=== PATIENT | male | born 1965 | race Caucasian/White ===

== ENCOUNTER 2016-11-16 08:00 | Outpatient (CLI) | payer BC, OTHER | END 2016-11-16 08:01 | disposition home or self-care (01) | DX: M86.9 Osteomyelitis, unspecified (principal); L89.309 Pressure ulcer of unspecified buttock, unspecified stage ==

== ENCOUNTER 2016-11-23 13:49 | Outpatient (CLI) | payer OTHER | END 2016-11-23 23:59 | DX: M86.9 Osteomyelitis, unspecified (principal) ==

== ENCOUNTER 2016-11-30 12:30 | Outpatient (CLI) | payer OTHER | END 2016-11-30 12:31 | disposition home or self-care (01) | DX: S31.809D Unspecified open wound of unspecified buttock, subsequent encounter (principal) ==

== ENCOUNTER 2016-11-30 13:50 | Outpatient (CLI) | payer OTHER | END 2016-11-30 13:51 | disposition home or self-care (01) | DX: M86.9 Osteomyelitis, unspecified (principal) ==

== ENCOUNTER 2016-12-07 | Outpatient (CLI) | payer OTHER | END 2016-12-07 08:44 | disposition home or self-care (01) | CPT/HCPCS: A0170; A0425; A0428 ==

== ENCOUNTER 2016-12-07 | Outpatient (CLI) | payer OTHER | END 2016-12-07 05:09 | disposition short-term general hospital (02) | DX: L89.319 Pressure ulcer of right buttock, unspecified stage (principal) | CPT/HCPCS: A0170; A0425; A0428 ==

== ENCOUNTER 2017-08-02 12:41 | Day surgery (SDC) | payer MEDICAID ==
[2017-08-02] MEDS ORDERED: LACTATED RINGERS 1,000 ML IV ONE ×2 (13:25→15:39)
[2017-08-02] MEDS ORDERED: LIDOCAINE-MPF 2% 5 ML VIAL IM ONE (14:55)
[2017-08-02] MEDS ORDERED: MIDAZOLAM 2 MG/2 ML VIAL IVP ONE (14:55)
[2017-08-02] MEDS ORDERED: PROPOFOL 200 MG/20 ML VIAL IVP ONE (14:55)
[2017-08-02 16:51] VITALS: BP 117/64
== END 2017-08-02 12:42 | disposition home or self-care (01) ==
LOC: SDS 12:41
PROVIDERS: ATTEND Surgery
PROC: 0DBL8ZX Excision of Transverse Colon, Via Natural or Artificial Opening Endoscopic, Diagnostic (ICD-10-PCS; principal; 2017-08-02 13:45)
DX: D12.3 Benign neoplasm of transverse colon (principal); D12.2 Benign neoplasm of ascending colon; K57.30 Diverticulosis of large intestine without perforation or abscess without bleeding; N31.9 Neuromuscular dysfunction of bladder, unspecified; G89.4 Chronic pain syndrome; G90.1 Familial dysautonomia [Riley-Day]; G82.53 Quadriplegia, C5-C7 complete
CPT/HCPCS: 45385; J7120

== ENCOUNTER 2017-09-27 11:10 | Outpatient (CLI) | payer OTHER, MEDICAID ==
--- NOTE | 2017-09-28 15:29 | Ultrasound Report ---
RETROPERITONEAL ULTRASOUND: 09/27/2017 HISTORY: Neurogenic bladder. Evaluate for stones or hydronephrosis. Patient is a quadriplegic. COMPARISON: 09/30/2016 Real-time scanning by the brand representative with saved static images reviewed. RIGHT KIDNEY: 19.0 x 6.6 x 9.3 cm. There is an upper pole cyst 10.9 x 10.4 x 9.7 cm with a smaller adjacent cyst 3.7 x 4.2 x 9.7 cm. Conmposite cyst measurements are 13.5 x 10.7 x 5.8 cm. LEFT KIDNEY: 12.3 x 6.2 x 6.2 cm. No cystic or solid mass is seen. No stones. Pre-void bladder volume 21 mL. R[address] catheter in place. Ureteral jets are not seen. Overall, the examination is similar to 09/30/2016. IMPRESSION: 1. ROUSE CATHETER DECOMPRESSES A NEUROGENIC BLADDER. 2. NO EVIDENCE OF RENAL STONES OR SOLID MASSES. LARGE RIGHT RENAL CYST BEFORE. 3. NO SIGNIFICANT NEW FINDINGS. :9 JOB #: [id number] EXT JOB #: [id number] MTDD
== END 2017-09-27 11:11 | disposition home or self-care (01) ==
LOC: DI 11:10
PROVIDERS: ATTEND Physical Medicine & Rehabilitation Spinal Cord Injury Medicine
DX: N31.9 Neuromuscular dysfunction of bladder, unspecified (principal)
CPT/HCPCS: 76770

== ENCOUNTER 2018-09-21 08:21 | Outpatient (CLI) | payer OTHER, MEDICAID ==
[2018-09-21 08:52] LABS: ALBUMIN 3.6 g/dL (3.2-5.5); ALBUMIN/GLOBULIN RATIO 1.2 (1.0-2.2); ALKALINE PHOSPHATASE 53 IU/L (42-121); ALT ALANINE AMINOTRANSFERASE 21 IU/L (10-60); AST ASPARTATE AMINOTRANSFERASE 20 IU/L (10-42); BASOPHILS % (AUTO) 0.3 %; BILIRUBIN,TOTAL 0.6 mg/dL (0.2-1.0); BUN - BLOOD UREA NITROGEN 9 mg/dL (6-20); CALCIUM 8.7 mg/dL (8.5-10.3); CARBON DIOXIDE - CO2 25 mmol/L (21-32); CHLORIDE 105 mmol/L (101-111); CHOL/HDL RATIO 4.8 (<5.0); CHOLESTEROL 174 mg/dL; CREATININE 0.5 mg/dL (0.6-1.2); EOSINOPHILS # (AUTO) 0.1 10^3/uL (0.0-0.7); EOSINOPHILS % (AUTO) 1.5 %; GFR - MDRD 173 (>89); GLUCOSE 106 mg/dL (70-100); HDL CHOLESTEROL 36 mg/dL; HGB - HEMOGLOBIN 14.9 g/dL (14.0-18.0); LDL CHOLESTEROL,CALCULATED 117 mg/dL; LDL/HDL RATIO 3.3 (<3.6); LYMPHOCYTES % (AUTO) 27.4 %; MEAN CORPUSCULAR HEMOGLOBIN 30.2 pg (27.0-31.0); MEAN CORPUSCULAR HGB CONC 34.8 g/dL (32.0-36.0); MEAN CORPUSCULAR VOLUME 86.9 fL (80.0-94.0); MEAN PLATELET VOLUME 7.6 fL (7.4-11.4); MONOCYTES # (AUTO) 0.5 10^3/uL (0.0-1.0); MONOCYTES % (AUTO) 6.3 %; NEUTROPHILS # (AUTO) 4.7 10^3/uL (1.5-6.6); NEUTROPHILS % (AUTO) 64.5 %; PLT - PLATELET COUNT 192 10^3/uL (130-450); RED BLOOD COUNT 4.95 10^6/uL (4.70-6.10); RED CELL DISTRIBUTION WIDTH 13.9 % (12.0-15.0); SODIUM 135 mmol/L (135-145); TOTAL PROTEIN 6.7 g/dL (6.7-8.2); VLDL CHOLESTEROL 21 mg/dL; WHITE BLOOD COUNT 7.3 x10^3/uL (4.8-10.8)
[2018-09-21 09:39] LABS: THYROID STIMULATING HORMONE 1.98 uIU/mL (0.34-5.60)
[2018-09-21 09:41] LABS: FREE T4 (FREE THYROXINE) 0.97 ng/dL (0.58-1.64)
== END 2018-09-21 08:22 | disposition home or self-care (01) ==
LOC: LAB 08:21
PROVIDERS: ATTEND Family Medicine
DX: Z00.00 Encounter for general adult medical examination without abnormal findings (principal); Z12.5 Encounter for screening for malignant neoplasm of prostate
CPT/HCPCS: 36415; 80053; 80061; 83721; 84153; 84439; 84443; 85025

== ENCOUNTER 2018-11-22 17:44 | Outpatient (CLI) | payer MEDICAID | END 2018-11-22 17:45 | disposition EMS.NT | LOC: EMS 17:44 | PROVIDERS: ATTEND Surgery | DX: I10 Essential (primary) hypertension (principal); R51 Headache; G82.20 Paraplegia, unspecified ==

== ENCOUNTER 2018-11-26 10:31 | Emergency (ER) | payer OTHER, MEDICAID ==
[2018-11-26 11:08] LABS: BILIRUBIN,URINE NEGATIVE (NEGATIVE); CLARITY,URINE HAZY (CLEAR); GLUCOSE, URINE (UA) NEGATIVE (NEGATIVE); KETONES,URINE (UA) NEGATIVE (NEGATIVE); LEUKOCYTE ESTERASE, URINE SMALL (NEGATIVE); NITRITE,URINE POSITIVE (NEGATIVE); OCCULT BLOOD,URINE SMALL (NEGATIVE); PROTEIN,URINE NEGATIVE (NEGATIVE); UROBILINOGEN,URINE 0.2 (NORMAL) E.U./dL (NORMAL)
[2018-11-26 11:16] LABS: AMORPHOUS SEDIMENT,UR Few /LPF; BACTERIA,URINE Many /HPF (None Seen); RBC,URINE 0-5 /HPF (0-5); SQUAMOUS EPITHELIAL CELL,UR RARE Squamous (<= Few)
[2018-11-26 11:17] LABS: CRYSTALS,URINE 0-2 Calcium Oxalate /LPF
[2018-11-26] MEDS ORDERED: PHENAZOPYRIDINE 100 MG TABLET PO STA (11:39)
[2018-11-26] MEDS ORDERED: SULFAMETH/TRIMETH DS 800/160 MG TABLET PO STA (11:39)
--- NOTE | 2018-11-26 11:39 | ED Physician Documentation ---
PD HPI MALE - Stated complaint Stated Complaint: MALE - Chief complaint Chief Complaint: UTI - History obtained from History obtained from: Patient - History of Present Illness Timing - onset: Yesterday (he had some episodes of autonomic dysfunction that he self treated at home. No URI symptoms. He is concerned about UTI because of that. Has jacques and is not able to feel discomfort of the bladder due to spinal injury.) Timing - duration: Days (1-2) Timing - details: Waxing and waning (had some episodes of autonomic symptoms yesterday) Associated symptoms: Back pain, Indwelling catheter, Other (feeling low grade fevers). No: Abdominal pain Similar symptoms before: Diagnosis (has not had UTI for about 4 years.) Recently seen: Not recently seen Review of Systems Constitutional: reports: Fever (subjective mild ever for 1-2 days) Nose: denies: Rhinorrhea / runny nose, Congestion Throat: denies: Sore throat Respiratory: denies: Cough GI: denies: Nausea, Vomiting, Diarrhea : denies: Discharge PD PAST MEDICAL HISTORY - Past Medical History Past Medical History: Yes Cardiovascular: None Respiratory: None Endocrine/Autoimmune: None GI: None : Indwelling catheter Psych: None Musculoskeletal: Other Derm: None - Past Surgical History Past Surgical History: Yes General: Appendectomy Neuro: Other Derm: Debridement - Present Medications Home Medications: Ambulatory Orders Medication Instructions Recorded Confirmed Acetaminophen/Diphenhydramine 650 mg PO Q4HR PRN 07/13/13 11/26/18 [Tylenol Pm Ex-Strength Caplet] Bisacodyl [Laxative] 10 mg PO DAILY 07/13/13 11/26/18 Cranberry 2,000 mg PO BID 07/13/13 11/26/18 Docusate Sodium [Docu Soft] 250 mg PO DAILY 07/13/13 11/26/18 Furosemide [Lasix] 20 mg PO BID 07/13/13 11/26/18 Multivitamin [Multivitamins] 1 each PO DAILY 07/13/13 11/26/18 Ascorbic Acid [Vitamin C] 1 tab PO DAILY 11/20/14 11/26/18 Cholecalciferol [Vitamin D3] 1 tab PO DAILY 11/20/14 11/26/18 Lactobacillus Acidophilus 1 cap PO DAILY 11/20/14 11/26/18 [Probiotic] Nitroglycerin 2% Oint [Nitro-Bid 1 inch TOP Q8HR PRN 11/20/14 11/26/18 2% Oint] Phenazopyridine HCl [Pyridium] 200 mg PO TID PRN #6 tablet 11/26/18 Senna [Senokot] 8.6 mg PO DAILY 11/26/18 11/26/18 Sulfamethox/Trimeth 800/160 1 each PO BID #20 tablet 11/26/18 [Bactrim Ds 800/160] - Allergies Allergies/Adverse Reactions: Allergies Allergy/AdvReac Type Severity Reaction Status Date / Time No Known Drug Allergies Allergy Verified 11/26/18 10:39 - Social History Does the pt smoke?: No Smoking Status: Never smoker Does the pt drink ETOH?: No Does the pt have substance abuse?: No - Immunizations Immunizations are current?: Yes PD ED PE NORMAL - Vitals Vital signs reviewed: Yes - General General: Alert and oriented X 3, No acute distress, Well developed/nourished - HEENT HEENT: Pharynx benign - Neck Neck: Supple, no meningeal sign, No adenopathy - Cardiac Cardiac: RRR, No murmur - Respiratory Respiratory: Clear bilaterally - Abdomen Abdomen: Soft, Non distended - Male Male : Deferred - Derm Derm: Normal color, Warm and dry - Neuro Neuro: Other (in wheelchair with paresis from waist down.) Results - Vitals Vitals: Vital Signs - 24 hr 11/26/18 11/26/18 11/26/18 10:37 10:51 12:15 Temperature 35.7 C L 97.7 C H 36.5 C Heart Rate 67 63 57 L Respiratory 20 12 Rate Blood Pressure 136/80 H 126/78 O2 Saturation 98 96 95 Oxygen O2 Source Room air - Labs Labs: Laboratory Tests 11/26/18 10:47 Urine Color LIGHT YELLOW Urine Clarity HAZY Urine pH 7.0 Ur Specific [place] <=1.005 Urine Protein NEGATIVE Urine Glucose (UA) NEGATIVE Urine Ketones NEGATIVE Urine Occult Blood SMALL H Urine Nitrite POSITIVE H Urine Bilirubin NEGATIVE Urine Urobilinogen 0.2 (NORMAL) Ur Leukocyte Esterase SMALL H Urine RBC 0-5 Urine WBC 11-25 H Ur Squamous Epith Cells RARE Squamous Urine Crystals 0-2 Calcium Oxalate Amorphous Sediment Few Urine Bacteria Many H Ur Microscopic Review INDICATED Urine Culture Comments INDICATED PD MEDICAL DECISION MAKING - ED course Complexity details: reviewed results, considered differential, d/w patient Departure - Departure Disposition: 01 Home, Self Care Clinical Impression: UTI (urinary tract infection) Qualifiers: Urinary tract infection type: acute cystitis Hematuria presence: without hematuria Qualified Code(s): N30.00 - Acute cystitis without hematuria Condition: Stable Record reviewed to determine appropriate education?: Yes Instructions: ED UTI Cystitis Male Follow-Up: Jose Baez MD [Primary Care Provider] - Prescriptions: Phenazopyridine HCl [Pyridium] 200 mg PO TID PRN #6 tablet PRN Reason: dysuria Sulfamethox/Trimeth 800/160 [Bactrim Ds 800/160] 1 each PO BID #20 tablet Comments: Drink lots of fluids. Bactrim antibiotic twice daily for the infection. You could use some phenazopyridine to reduce the bladder irritation and hopefully therefore less spasming. Discharge Date/Time: 11/26/18 12:20
[2018-11-26 12:16] VITALS: BP 126/78
== END 2018-11-26 12:20 | disposition home or self-care (01) ==
LOC: ED 10:31
DX: N30.00 Acute cystitis without hematuria (principal); G83.9 Paralytic syndrome, unspecified; Z99.3 Dependence on wheelchair
CPT/HCPCS: 81001; 87077; 87086; 87181; 99283; A9270; 81003

== ENCOUNTER 2018-11-28 15:53 | Emergency (ER) | payer OTHER, MEDICAID ==
--- NOTE | 2018-11-28 16:07 | ED Physician Documentation ---
PD HPI CHEST PAIN - Stated complaint Stated Complaint: CHEST PAIN - History obtained from History obtained from: Patient - History of Present Illness Timing - onset: How many days ago (3) Timing - onset during: Other (he had UTI symptoms with an episode of autonomic dysreflexia, with dyspnea, hypertension and some vomiting. Did not have chest pain right hten but noted it a few hours later and has had the chest tightness undulate the past few days. Not exertional (he does arm cycling machine) nor any palpitations. Has had lot of belching and feels bloated in abd.) Timing - duration: Days Timing - details: Gradual onset, Still present, Waxing and waning Quality: Pressure, Tightness. No: Tearing, Dull, Stabbing Location: Substernal Radiation: Abdominal. No: Back Improved by: No: Rest Worsened by: No: Exertion, Inspiration Associated symptoms: General Weakness. No: Nausea, Palpitations, Cough Similar symptoms before: Has not had sx before (no history of CAD. Is concerned that the hypertension and AD episode he had the other day caused some heart injury.) Recently seen: Not recently seen Review of Systems Constitutional: denies: Fever, Chills Nose: denies: Rhinorrhea / runny nose, Congestion Throat: denies: Sore throat Cardiac: reports: Chest pain / pressure, Pedal edema (chronic daily, better with legs elevated during the night.). denies: Palpitations, Calf pain Respiratory: denies: Cough PD PAST MEDICAL HISTORY - Past Medical History Cardiovascular: None, Murmur Respiratory: None Endocrine/Autoimmune: None GI: None : Indwelling catheter Psych: None Musculoskeletal: Other Derm: None - Past Surgical History Past Surgical History: Yes General: Appendectomy Neuro: Other Derm: Debridement - Present Medications Home Medications: Ambulatory Orders Medication Instructions Recorded Confirmed Acetaminophen/Diphenhydramine 650 mg PO Q4HR PRN 07/13/13 11/26/18 [Tylenol Pm Ex-Strength Caplet] Bisacodyl [Laxative] 10 mg PO DAILY 07/13/13 11/26/18 Cranberry 2,000 mg PO BID 07/13/13 11/26/18 Docusate Sodium [Docu Soft] 250 mg PO DAILY 07/13/13 11/26/18 Furosemide [Lasix] 20 mg PO BID 07/13/13 11/26/18 Multivitamin [Multivitamins] 1 each PO DAILY 07/13/13 11/26/18 Ascorbic Acid [Vitamin C] 1 tab PO DAILY 11/20/14 11/26/18 Cholecalciferol [Vitamin D3] 1 tab PO DAILY 11/20/14 11/26/18 Lactobacillus Acidophilus 1 cap PO DAILY 11/20/14 11/26/18 [Probiotic] Nitroglycerin 2% Oint [Nitro-Bid 1 inch TOP Q8HR PRN 11/20/14 11/26/18 2% Oint] Phenazopyridine HCl [Pyridium] 200 mg PO TID PRN #6 tablet 11/26/18 Senna [Senokot] 8.6 mg PO DAILY 11/26/18 11/26/18 Sulfamethox/Trimeth 800/160 1 each PO BID #20 tablet 11/26/18 [Bactrim Ds 800/160] Famotidine 20 mg PO DAILY #20 tablet 11/28/18 - Allergies Allergies/Adverse Reactions: Allergies Allergy/AdvReac Type Severity Reaction Status Date / Time No Known Drug Allergies Allergy Verified 11/28/18 16:23 - Social History Does the pt smoke?: No Smoking Status: Never smoker Does the pt drink ETOH?: No Does the pt have substance abuse?: No - Immunizations Immunizations are current?: Yes PD ED PE NORMAL - Vitals Vital signs reviewed: Yes - General General: Alert and oriented X 3, No acute distress, Well developed/nourished - HEENT HEENT: Ears normal, Pharynx benign - Neck Neck: Supple, no meningeal sign, No adenopathy - Cardiac Cardiac: RRR, Other (1/6 murmur left chest without radiation to neck. ) - Respiratory Respiratory: Clear bilaterally - Abdomen Abdomen: Normal bowel sounds, Soft, Non tender, Non distended, No organomegaly - Derm Derm: Normal color, No rash - Extremities Extremities: Other (1+ edema in both lower legs, with muscle atrophy chronic also noted. ) - Neuro Eye Opening: Spontaneous Motor: Obeys Commands Verbal: Oriented GCS Score: 15 Results - Vitals Vitals: Vital Signs - 24 hr 11/28/18 11/28/18 11/28/18 16:18 16:30 16:48 Temperature 36.4 C L Heart Rate 83 75 65 Respiratory 18 15 16 Rate Blood Pressure 117/69 101/58 L 132/78 H O2 Saturation 95 98 95 11/28/18 11/28/18 17:30 18:05 Temperature 36.4 C L Heart Rate 65 63 Respiratory 16 16 Rate Blood Pressure 128/72 126/74 O2 Saturation 97 96 Oxygen O2 Source Room air - EKG (time done) 16:04 Rate: Rate (enter#) (69) Rhythm: NSR [place]: Normal Intervals: Normal ID QRS: Normal Ischemia: Normal ST segments, Non specific changes (lateral leads, T flattening. No ST changes. ). No: ST elevation c/w ischemia, ST depression - Labs Labs: Laboratory Tests 11/28/18 11/28/18 11/28/18 16:15 16:15 16:15 WBC 7.4 RBC 4.94 Hgb 14.8 Hct 44.0 MCV 89.0 MCH 29.9 MCHC 33.6 RDW 14.2 Plt Count 173 MPV 7.8 Neut # (Auto) 4.8 Lymph # (Auto) 1.8 [place] # (Auto) 0.6 Eos # (Auto) 0.2 Baso # (Auto) 0.0 Absolute Nucleated RBC 0.00 Nucleated RBC % 0.0 Sodium 136 Potassium 4.2 Chloride 103 Carbon Dioxide 25 Anion Gap 8.0 BUN 15 Creatinine 0.6 Estimated GFR (MDRD) 140 Glucose 121 H Calcium 9.2 Magnesium 2.3 Total Bilirubin 0.6 AST 22 ALT 22 Alkaline Phosphatase 47 Troponin I < 0.04 B-Natriuretic Peptide Total Protein 6.8 Albumin 3.8 Globulin 3.0 Albumin/Globulin Ratio 1.3 Lipase 29 11/28/18 16:15 WBC RBC Hgb Hct MCV MCH MCHC RDW Plt Count MPV Neut # (Auto) Lymph # (Auto) [place] # (Auto) Eos # (Auto) Baso # (Auto) Absolute Nucleated RBC Nucleated RBC % Sodium Potassium Chloride Carbon Dioxide Anion Gap BUN Creatinine Estimated GFR (MDRD) Glucose Calcium Magnesium Total Bilirubin AST ALT Alkaline Phosphatase Troponin I B-Natriuretic Peptide 22 Total Protein Albumin Globulin Albumin/Globulin Ratio Lipase - Rads (name of study) chest xray Radiology: Prelim report reviewed, EMP read contemporaneously (normal), See rad report PD MEDICAL DECISION MAKING - ED course Complexity details: reviewed results (no signs of DE, CHF, pneumonia, effusion. Consider heartburn as he has been belching often and did feel some improvement with the Mylanta. ), re-evaluated patient, considered differential, d/w patient Departure - Departure Disposition: 01 Home, Self Care Clinical Impression: Chest pain Qualifiers: Chest pain type: precordial pain Qualified Code(s): R07.2 - Precordial pain Condition: Stable Record reviewed to determine appropriate education?: Yes Instructions: ED Chest Pain Atypical Unkn Cause Follow-Up: Jsoe Baez MD [Primary Care Provider] - Prescriptions: Famotidine 20 mg PO DAILY #20 tablet Comments: No signs of heart attack heart failure pancreas or liver abnormalities. The lungs appear clear on x-ray as well. I am presuming the discomfort may be reflux or gas. You could try some famotidine acid reducing medicine daily for the next couple of weeks and also continue antacid such as Tums or Mylanta or an equivalent periodically. Follow-up with your primary care if you continue to have chest discomfort in particular in the exertion related. Discharge Date/Time: 11/28/18 18:00
[2018-11-28] MEDS ORDERED: MAG HYDROX/AL HYDROX/SIMETH 30 ML UDC PO STA (16:34)
[2018-11-28 16:43] LABS: BASOPHILS % (AUTO) 0.5 %; EOSINOPHILS # (AUTO) 0.2 10^3/uL (0.0-0.7); EOSINOPHILS % (AUTO) 2.3 %; HGB - HEMOGLOBIN 14.8 g/dL (14.0-18.0); LYMPHOCYTES # (AUTO) 1.8 10^3/uL (1.5-3.5); LYMPHOCYTES % (AUTO) 24.8 %; MEAN CORPUSCULAR HEMOGLOBIN 29.9 pg (27.0-31.0); MEAN CORPUSCULAR HGB CONC 33.6 g/dL (32.0-36.0); MEAN PLATELET VOLUME 7.8 fL (7.4-11.4); MONOCYTES # (AUTO) 0.6 10^3/uL (0.0-1.0); MONOCYTES % (AUTO) 7.5 %; NEUTROPHILS # (AUTO) 4.8 10^3/uL (1.5-6.6); NEUTROPHILS % (AUTO) 64.9 %; PLT - PLATELET COUNT 173 10^3/uL (130-450); RED BLOOD COUNT 4.94 10^6/uL (4.70-6.10); RED CELL DISTRIBUTION WIDTH 14.2 % (12.0-15.0); WHITE BLOOD COUNT 7.4 x10^3/uL (4.8-10.8)
[2018-11-28 16:53] LABS: ALBUMIN 3.8 g/dL (3.2-5.5); ALBUMIN/GLOBULIN RATIO 1.3 (1.0-2.2); BILIRUBIN,TOTAL 0.6 mg/dL (0.2-1.0); CALCIUM 9.2 mg/dL (8.5-10.3); CREATININE 0.6 mg/dL (0.6-1.2); MAGNESIUM 2.3 mg/dL (1.7-2.8); TOTAL PROTEIN 6.8 g/dL (6.7-8.2)
--- NOTE | 2018-11-28 17:14 | XRAY Report ---
Reason: chest pressure Procedure Date: 11/28/2018 Accession Number: [id number] / [id number] Procedure: XR - Chest 1 View X-Ray CPT Code: 08070 FULL RESULT: EXAM: CHEST RADIOGRAPHY EXAM DATE: 11/28/2018 05:03 PM. CLINICAL HISTORY: Chest pressure. COMPARISON: None. TECHNIQUE: 1 view. FINDINGS: Lungs/Pleura: No focal opacities evident. No pleural effusion. No pneumothorax. Mediastinum: Within exam limitations, the cardiomediastinal contour is normal. Other: Cervicothoracic fusion hardware is in place. IMPRESSION: No acute intrathoracic plain film abnormality. RADIA
[2018-11-28 18:05] VITALS: BP 126/74
== END 2018-11-28 18:00 | disposition home or self-care (01) ==
LOC: ED 15:53
DX: R07.2 Precordial pain (principal); R14.2 Eructation; R01.1 Cardiac murmur, unspecified; I10 Essential (primary) hypertension
CPT/HCPCS: 36415; 71045; 80053; 83690; 83735; 83880; 84484; 85025; 93005; 99283; 99284; A9270

== ENCOUNTER 2019-01-15 16:00 | Observation (INO) | payer MEDICAID ==
[2019-01-15] MEDS ORDERED: SODIUM CHLORIDE FLUSH 0.9% 10 ML SYRINGE IVP PRN (17:28)
[2019-01-15] MEDS ORDERED: SODIUM CHLORIDE 0.9% 1,000 ML IV SCH (18:00)
[2019-01-15] MEDS: SODIUM/POTASSIUM/MAG SULFATES 354 ML PREP KIT PO SCH (19:10)
[2019-01-16] MEDS ORDERED: SODIUM CHLORIDE FLUSH 0.9% 10 ML SYRINGE IVP SCH (01:00)
[2019-01-16] MEDS: SODIUM/POTASSIUM/MAG SULFATES 354 ML PREP KIT PO SCH (04:21)
--- NOTE | 2019-01-16 07:56 | ANESTHESIA ---
Pre-Anesthesia VS, & Labs - Diagnosis Follow up on tubular adenoma - Procedure colonoscopy Vital Signs: Temp Pulse Resp BP Pulse Ox 36.3 C L 68 18 100/53 L 96 01/16/19 07:44 01/16/19 07:44 01/16/19 07:44 01/16/19 07:44 01/16/19 07:44 Height 6 ft Weight (kg) 120.202 kg Body Mass Index 35.9 - NPO >8 hours Home Medications and Allergies Active Medications Sodium Chloride (Normal Saline 0.9%) 1,000 mls @ 60 mls/hr IV .[id number] [facility] Last Infusion: 01/15/19 22:58 Dose: 60 mls/hr Sodium Chloride (Normal Saline Flush 0.9%) 10 ml IVP 0100,0900,1700 [facility] Last Admin: 01/15/19 23:34 Dose: Not Given Sodium Chloride (Normal Saline Flush 0.9%) 10 ml IVP PRN PRN PRN Reason: NEEDED PER PROVIDER ORDERS Acetaminophen/Diphenhydramine [Tylenol Pm Ex-Strength Caplet] 650 mg PO Q4HR PRN 07/13/13 Bisacodyl [Laxative] 10 mg PO DAILY 07/13/13 Cranberry 2,000 mg PO BID 07/13/13 Docusate Sodium [Docu Soft] 250 mg PO DAILY 07/13/13 Furosemide [Lasix] 20 mg PO BID 07/13/13 Multivitamin [Multivitamins] 1 each PO DAILY 07/13/13 Ascorbic Acid [Vitamin C] 1 tab PO DAILY 11/20/14 Cholecalciferol [Vitamin D3] 1 tab PO DAILY 11/20/14 Lactobacillus Acidophilus [Probiotic] 1 cap PO DAILY 11/20/14 Nitroglycerin 2% Oint [Nitro-Bid 2% Oint] 1 inch TOP Q8HR PRN 11/20/14 Senna [Senokot] 8.6 mg PO DAILY 11/26/18 Allergies/Adverse Reactions: Allergies Allergy/AdvReac Type Severity Reaction Status Date / Time No Known Drug Allergies Allergy Verified 11/28/18 16:23 Anes History & Medical History - Anesthetic History Anesthesia Complications: reports: No previous complications - Medical History Cardiovascular: reports: None, Murmur Pulmonary: reports: None Gastrointestinal: reports: None Urinary: reports: Indwelling catheter Neuro: reports: Other (Paralysis at chest level, has had issues with autonomic dysreflexia.) Musculoskeletal: reports: Other Endocrine/Autoimmune: reports: None Blood Disorders: reports: None Skin: reports: None Smoking Status: Never smoker Psychosocial: reports: No issues indicated - Surgical History General: Appendectomy Neurologic: Other Orthopedic: Spine surgery Dermatologic: Debridement Exam General: Alert, Oriented x3, Cooperative, No acute distress Dental: WNL Mouth Openin Fingerbreadth Mallampati classification: III Thyromental Distance: 4-6 cm Respiratory: Lungs clear, Normal breath sounds, No respiratory distress Cardiovascular: Regular rate, Normal S1, Normal S2, No murmurs Mental/Cognitive Status: Alert/Oriented X3, Normal for patient Plan Anesthesia Type: MAC Consent for Procedure(s) Verified and Reviewed: Yes Code Status: Attempt Resuscitation ASA classification: 3-Severe systemic disease Is this case an emergency?: No
[2019-01-16] MEDS ORDERED: SODIUM CHLORIDE 0.9% 1,000 ML IV ONE (08:03)
[2019-01-16] MEDS ORDERED: NITROGLYCERIN IV ONE (08:08)
[2019-01-16] MEDS ORDERED: MIDAZOLAM 2 MG/2 ML VIAL IVP ONE (08:28)
[2019-01-16] MEDS ORDERED: PROPOFOL 200 MG/20 ML VIAL IVP ONE (08:28)
[2019-01-16] MEDS ORDERED: fentaNYL 100 MCG/2 ML VIAL IVP ONE (08:28)
[2019-01-16 10:05] VITALS: BP 127/76
== END 2019-01-16 10:25 | disposition home or self-care (01) ==
LOC: MS2 16:00 → PREINTOOBSV 01-16 09:20
PROVIDERS: ADMIT Surgery; ATTEND Surgery
PROC: 0DBK8ZZ Excision of Ascending Colon, Via Natural or Artificial Opening Endoscopic (ICD-10-PCS; principal; 2019-01-15)
DX: Z12.11 Encounter for screening for malignant neoplasm of colon (principal); D12.2 Benign neoplasm of ascending colon; K63.89 Other specified diseases of intestine; K64.8 Other hemorrhoids; G82.53 Quadriplegia, C5-C7 complete; Z99.3 Dependence on wheelchair; E66.3 Overweight; Z74.1 Need for assistance with personal care; Z86.79 Personal history of other diseases of the circulatory system; G47.30 Sleep apnea, unspecified
CPT/HCPCS: 45385; 88305; A9270; G0378

== ENCOUNTER 2019-04-12 16:57 | Outpatient (CLI) | payer MEDICAID | END 2019-04-12 16:58 | disposition EMS.NT | LOC: EMS 16:57 | PROVIDERS: ATTEND Surgery | DX: S99.911A Unspecified injury of right ankle, initial encounter (principal); X58.XXXA Exposure to other specified factors, initial encounter; Y93.H9 Activity, other involving exterior property and land maintenance, building and construction; Y92.007 Garden or yard of unspecified non-institutional (private) residence as the place of occurrence of the external cause ==

== ENCOUNTER 2019-04-12 17:19 | Emergency (ER) | payer OTHER, MEDICAID ==
--- NOTE | 2019-04-12 18:29 | ED Physician Documentation ---
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 They are unsure if it is broken or not. He has no sensation in his legs. Review of Systems Constitutional: denies: Fever, Chills Nose: denies: Rhinorrhea / runny nose, Congestion Respiratory: denies: Cough PD PAST MEDICAL HISTORY - Past Medical History Cardiovascular: None, Murmur Respiratory: None Neuro: Other Endocrine/Autoimmune: None GI: None : Indwelling catheter Psych: None Musculoskeletal: Other Derm: None - Past Surgical History Past Surgical History: Yes General: Appendectomy Ortho: Spine surgery Neuro: Other Derm: Debridement - Present Medications Home Medications: Ambulatory Orders Medication Instructions Recorded Confirmed Acetaminophen/Diphenhydramine 650 mg PO Q4HR PRN 07/13/13 11/26/18 [Tylenol Pm Ex-Strength Caplet] Bisacodyl [Laxative] 10 mg PO DAILY 07/13/13 11/26/18 Cranberry 2,000 mg PO BID 07/13/13 11/26/18 Docusate Sodium [Docu Soft] 250 mg PO DAILY 07/13/13 11/26/18 Furosemide [Lasix] 20 mg PO BID 07/13/13 11/26/18 Multivitamin [Multivitamins] 1 each PO DAILY 07/13/13 11/26/18 Ascorbic Acid [Vitamin C] 1 tab PO DAILY 11/20/14 11/26/18 Cholecalciferol [Vitamin D3] 1 tab PO DAILY 11/20/14 11/26/18 Lactobacillus Acidophilus 1 cap PO DAILY 11/20/14 11/26/18 [Probiotic] Nitroglycerin 2% Oint [Nitro-Bid 1 inch TOP Q8HR PRN 11/20/14 11/26/18 2% Oint] Phenazopyridine HCl [Pyridium] 200 mg PO TID PRN #6 tablet 11/26/18 Senna [Senokot] 8.6 mg PO DAILY 11/26/18 11/26/18 Sulfamethox/Trimeth 800/160 1 each PO BID #20 tablet 11/26/18 [Bactrim Ds 800/160] Famotidine 20 mg PO DAILY #20 tablet 11/28/18 - Allergies Allergies/Adverse Reactions: Allergies Allergy/AdvReac Type Severity Reaction Status Date / Time No Known Drug Allergies Allergy Verified 04/12/19 17:29 - Social History Does the pt smoke?: No Smoking Status: Never smoker Does the pt drink ETOH?: No Does the pt have substance abuse?: No - Immunizations Immunizations are current?: Yes PD ED PE NORMAL - Vitals Vital signs reviewed: Yes - General General: Alert and oriented X 3, No acute distress - HEENT HEENT: Moist mucous membranes - Derm Derm: Warm and dry - Extremities Extremities: Other (R LE - mild swelling R foot and ankle. no sensation. vascularly intact. ) - Neuro Neuro: Alert and oriented X 3 Results - Vitals Vitals: Vital Signs - 24 hr 04/12/19 04/12/19 17:25 19:01 Temperature 36.1 C L Heart Rate 82 78 Respiratory 16 14 Rate Blood Pressure 111/63 106/79 O2 Saturation 96 96 Oxygen O2 Source Room air - Rads (name of study) Right ankle x-ray Radiology: Prelim report reviewed, EMP read contemporaneously, See rad report (No acute fractures) Right foot x-ray Radiology: Prelim report reviewed, EMP read contemporaneously, See rad report (No acute fractures) PD MEDICAL DECISION MAKING - ED course Complexity details: reviewed results, re-evaluated patient, considered differential, d/w patient, d/w family ED course: 53-year-old male, paralyzed after C6 injury. Right foot and ankle injury. No acute findings on x-ray. We will continue supportive care and follow-up with his doctor. Patient counseled regarding signs and symptoms for which I believe and urgent re-evaluation would be necessary. Patient with good understanding of and agreement to plan and is comfortable going home at this time This document was made in part using voice recognition software. While efforts are made to proofread this document, sound alike and grammatical errors may occur. Departure - Departure Disposition: 01 Home, Self Care Clinical Impression: Right ankle sprain Qualifiers: Encounter type: initial encounter Involved ligament of ankle: unspecified ligament Qualified Code(s): S93.401A - Sprain of unspecified ligament of right ankle, initial encounter Condition: Good Health Concerns: foot/ankle crush Plan of Treatment: supportive Care Goals: no fractures Assessment: no fractures Instructions: ED Sprain Ankle W X Ray Follow-Up: Jose Baez MD [Primary Care Provider] - As Needed Comments: There are no visible fractures on x-rays today. Return if he worsens. Follow- up with his doctor as needed for further care. Discharge Date/Time: 04/12/19 19:01
--- NOTE | 2019-04-12 18:49 | XRAY Report ---
Reason: R foot/ankle caught under electric wheelchair Procedure Date: 04/12/2019 Accession Number: [id number] / [id number] Procedure: XR - Foot 3 View RT CPT Code: FULL RESULT: EXAM: RIGHT FOOT RADIOGRAPHY EXAM DATE: 04/12/2019 06:22 PM. CLINICAL HISTORY: R foot/ankle caught under electric wheelchair. COMPARISON: None. TECHNIQUE: 3 views. FINDINGS: Bones: There is diffuse demineralization of the bones of the right foot. No acute fracture is identified. Joints: Joint space and alignment appear satisfactory. Soft Tissues: There is soft tissue swelling of the forefoot. IMPRESSION: Diffuse demineralization without a visualized acute fracture. RADIA
--- NOTE | 2019-04-12 18:50 | XRAY Report ---
Reason: R foot/ankle caught under electric wheelchair Procedure Date: 04/12/2019 Accession Number: [id number] / [id number] Procedure: XR - Ankle 3 View RT CPT Code: FULL RESULT: EXAM: RIGHT ANKLE RADIOGRAPHY EXAM DATE: 04/12/2019 06:22 PM. CLINICAL HISTORY: R foot/ankle caught under electric wheelchair. COMPARISON: ANKLE 3 VIEW RT 04/19/2016 10:49 AM LEG LOWER RT 02/26/2016 5:09 PM. TECHNIQUE: 3 views. FINDINGS: Bones: There is an old oblique fracture with callus formation of the inferior tibia diaphysis. There is diffuse demineralization present. No acute fracture. Joints: There is no subluxation or dislocation. Soft Tissues: No radiopaque soft tissue foreign body. IMPRESSION: 1. Diffuse demineralization without acute fracture. Old fracture with callus formation of the inferior tibia diaphysis. RADIA
[2019-04-12 19:04] VITALS: BP 106/79
== END 2019-04-12 19:01 | disposition home or self-care (01) ==
LOC: ED 17:19
DX: S93.401A Sprain of unspecified ligament of right ankle, initial encounter (principal); W23.0XXA Caught, crushed, jammed, or pinched between moving objects, initial encounter; G82.20 Paraplegia, unspecified; S14.106S Unspecified injury at C6 level of cervical spinal cord, sequela; Z99.3 Dependence on wheelchair
CPT/HCPCS: 99282; 99283

== ENCOUNTER 2019-05-15 23:07 | Outpatient (CLI) | payer MEDICAID | END 2019-05-15 23:08 | disposition EMS.NT | LOC: EMS 23:07 | PROVIDERS: ATTEND Surgery | DX: R51 Headache (principal) ==

== ENCOUNTER 2019-06-14 09:23 | Outpatient (CLI) | payer OTHER, MEDICAID ==
--- NOTE | 2019-06-14 15:24 | Ultrasound Report ---
Reason: NEUROGENIC BLADDER Procedure Date: 06/14/2019 Accession Number: [id number] / [id number] Procedure: US - Retroperitoneal CPT Code: FULL RESULT: EXAM: RENAL ULTRASOUND EXAM DATE: 06/14/2019 10:46 AM. CLINICAL HISTORY: Neurogenic bladder. COMPARISON: RETROPERITONEAL 09/30/2016 11:04 AM. TECHNIQUE: Real-time scanning was performed with static images obtained. FINDINGS: Right Kidney: 13.9 x 7.9 x 10.5 cm. Normal echotexture with no stones, contour-deforming masses, or hydronephrosis. The upper pole exophytic large cyst measures 11.7 x 11.7 x 10.7 cm. A mid renal cyst measures 7.1 x 3.9 x 6.4 cm. No solid masses evident. Left Kidney: 12.8 x 6.2 x 6.1 cm. Normal echotexture with no stones, contour-deforming masses, or hydronephrosis. Bladder: Bilateral jets seen. The prevoid bladder volume was 44 cc. A Kaba catheter was in position. No bladder wall thickening, mass or debris evident. Other: None. IMPRESSION: 1. No hydronephrosis. 2. 2 large right mid to upper pole cysts measuring up to 11.7 and 7.1 cm respectively. 3. Kaba catheter within bladder lumen. RADIA
== END 2019-06-14 09:24 | disposition home or self-care (01) ==
LOC: DI 09:23
PROVIDERS: ATTEND Urology
DX: N31.9 Neuromuscular dysfunction of bladder, unspecified (principal); N28.1 Cyst of kidney, acquired
CPT/HCPCS: 76770

== ENCOUNTER 2019-06-27 08:00 | Outpatient (CLI) | payer MEDICAID ==
[2019-06-27 13:12] LABS: BILIRUBIN,URINE NEGATIVE (NEGATIVE); GLUCOSE, URINE (UA) NEGATIVE (NEGATIVE); KETONES,URINE (UA) NEGATIVE (NEGATIVE); LEUKOCYTE ESTERASE, URINE SMALL (NEGATIVE); NITRITE,URINE NEGATIVE (NEGATIVE); OCCULT BLOOD,URINE NEGATIVE (NEGATIVE); PROTEIN,URINE NEGATIVE (NEGATIVE); UROBILINOGEN,URINE 0.2 (NORMAL) E.U./dL (NORMAL)
[2019-06-27 13:45] LABS: BACTERIA,URINE Rare /HPF (None Seen); CLARITY,URINE CLEAR (CLEAR); RBC,URINE 0-5 /HPF (0-5); SQUAMOUS EPITHELIAL CELL,UR RARE Squamous (<= Few)
== END 2019-06-27 23:59 | disposition home or self-care (01) ==
LOC: LAB.R 08:00
PROVIDERS: ATTEND Urology
DX: N39.0 Urinary tract infection, site not specified (principal)
CPT/HCPCS: 81001; 87077; 87086; 87181

== ENCOUNTER 2019-07-10 12:44 | Emergency (ER) | payer OTHER, MEDICAID ==
--- NOTE | 2019-07-10 13:53 | ED Physician Documentation ---
PD HPI MALE - Stated complaint Stated Complaint: MALE - Chief complaint Chief Complaint: UTI - History obtained from History obtained from: Patient (53-year-old gentleman with history of spinal cord injury and indwelling catheter was recently diagnosed with UTI by his urologist and one was on 1 week of Cipro. Subsequent to that he change his catheter today but is running low-grade fevers in the 99's, and he denies any high fevers or vomiting. He does have mild rectal pain which she finds interesting since he is not supposed to have pain below his spinal cord injury.) Review of Systems Constitutional: denies: Chills, Myalgias, Fatigue GI: denies: Abdominal Pain, Nausea, Vomiting, Diarrhea PD PAST MEDICAL HISTORY - Past Medical History Cardiovascular: None, Murmur Respiratory: None Neuro: Other Endocrine/Autoimmune: None GI: None : Indwelling catheter Psych: None Musculoskeletal: Other Derm: None - Past Surgical History Past Surgical History: Yes General: Appendectomy Ortho: Spine surgery Neuro: Other Derm: Debridement - Present Medications Home Medications: Ambulatory Orders Medication Instructions Recorded Confirmed Acetaminophen/Diphenhydramine 650 mg PO Q4HR PRN 07/13/13 11/26/18 [Tylenol Pm Ex-Strength Caplet] Bisacodyl [Laxative] 10 mg PO DAILY 07/13/13 11/26/18 Cranberry 2,000 mg PO BID 07/13/13 11/26/18 Docusate Sodium [Docu Soft] 250 mg PO DAILY 07/13/13 11/26/18 Furosemide [Lasix] 20 mg PO BID 07/13/13 11/26/18 Multivitamin [Multivitamins] 1 each PO DAILY 07/13/13 11/26/18 Ascorbic Acid [Vitamin C] 1 tab PO DAILY 11/20/14 11/26/18 Cholecalciferol [Vitamin D3] 1 tab PO DAILY 11/20/14 11/26/18 Lactobacillus Acidophilus 1 cap PO DAILY 11/20/14 11/26/18 [Probiotic] Nitroglycerin 2% Oint [Nitro-Bid 1 inch TOP Q8HR PRN 11/20/14 11/26/18 2% Oint] Phenazopyridine HCl [Pyridium] 200 mg PO TID PRN #6 tablet 11/26/18 Senna [Senokot] 8.6 mg PO DAILY 11/26/18 11/26/18 Sulfamethox/Trimeth 800/160 1 each PO BID #20 tablet 11/26/18 [Bactrim Ds 800/160] Famotidine 20 mg PO DAILY #20 tablet 11/28/18 Ciprofloxacin HCl [Cipro] 500 mg PO BID 14 Days #28 tablet 07/10/19 - Allergies Allergies/Adverse Reactions: Allergies Allergy/AdvReac Type Severity Reaction Status Date / Time No Known Drug Allergies Allergy Verified 07/10/19 12:47 - Social History Does the pt smoke?: No Smoking Status: Never smoker Does the pt drink ETOH?: No Does the pt have substance abuse?: No - Immunizations Immunizations are current?: Yes PD ED PE NORMAL - Vitals Vital signs reviewed: Yes - General General: Alert and oriented X 3, No acute distress - Abdomen Abdomen: Soft, Non tender - Male Male : Other (Catheter in place, mildly dark urine in the bag, not overtly purulence.) - Neuro Neuro: Alert and oriented X 3, Normal speech Results - Vitals Vitals: Vital Signs - 24 hr 07/10/19 12:47 Temperature 36.3 C L Heart Rate 78 Respiratory 16 Rate Blood Pressure 87/59 L O2 Saturation 98 Oxygen O2 Source Room air PD MEDICAL DECISION MAKING - ED course ED course: 53-year-old gentleman presents with recurrent UTI. Probably no point doing a urinalysis given that he has an indwelling cath repeat the culture. Previous culture reviewed, Cipro should work, but wonder if he has some element of prostatitis given the rectal pain. Note made of his blood pressure, he says this is his usual blood pressure since his spinal cord injury. Departure - Departure Disposition: 01 Home, Self Care Clinical Impression: UTI (urinary tract infection) Qualifiers: Urinary tract infection type: catheter-associated UTI Indwelling urinary catheter type: indwelling urethral catheter Encounter type: initial encounter Qualified Code(s): T83.511A - Infection and inflammatory reaction due to indwelling urethral catheter, initial encounter; N39.0 - Urinary tract infect ion, site not specified Condition: Good Record reviewed to determine appropriate education?: Yes Instructions: Catheter Indwelling Urinary Dc Prescriptions: Ciprofloxacin HCl [Cipro] 500 mg PO BID 14 Days #28 tablet Comments: As discussed, given the rectal pain there may be some element of prostatitis which would explain the previous treatment failure. Return for new worsening symptoms. Follow-up with your urologist and your primary care physician for further evaluation and treatment. We will culture the urine, if an antibiotic change is necessary based on that we will call you in 2 to 3 days time
[2019-07-10 14:08] VITALS: BP 85/50
== END 2019-07-10 14:09 | disposition home or self-care (01) ==
LOC: ED 12:44
DX: T83.511A Infection and inflammatory reaction due to indwelling urethral catheter, initial encounter (principal); N39.0 Urinary tract infection, site not specified
CPT/HCPCS: 87086; 87181; 99283

== ENCOUNTER 2019-11-22 08:52 | Emergency (ER) | payer MEDICAID, OTHER ==
[2019-11-22 09:06] VITALS: BP 124/76
[2019-11-22 09:22] LABS: BILIRUBIN,URINE NEGATIVE (NEGATIVE); GLUCOSE, URINE (UA) NEGATIVE (NEGATIVE); KETONES,URINE (UA) NEGATIVE (NEGATIVE); LEUKOCYTE ESTERASE, URINE LARGE (NEGATIVE); NITRITE,URINE POSITIVE (NEGATIVE); OCCULT BLOOD,URINE MODERATE (NEGATIVE); PROTEIN,URINE NEGATIVE (NEGATIVE); UROBILINOGEN,URINE 0.2 (NORMAL) E.U./dL (NORMAL)
[2019-11-22 09:23] LABS: CLARITY,URINE HAZY (CLEAR)
[2019-11-22 09:37] LABS: SQUAMOUS EPITHELIAL CELL,UR NONE SEEN (<= Few); WBC CLUMPS,URINE PRESENT
[2019-11-22 09:38] LABS: BACTERIA,URINE Few /HPF (None Seen)
--- NOTE | 2019-11-22 09:41 | ED Physician Documentation ---
PD HPI MALE - Stated complaint Stated Complaint: MALE - Chief complaint Chief Complaint: UTI - History obtained from History obtained from: Patient - History of Present Illness Timing - onset: Today Timing - details: Abrupt onset Associated symptoms: Other (darker urine with odor. Is c/w prior UTIs. Feeling okay otherwise. Indwelling jacques catheter with prior UTIs.) PD HPI MALE CONTRIB FACTORS: Indwelling catheter Similar symptoms before: Diagnosis (uti) Review of Systems Constitutional: denies: Fever GI: denies: Nausea, Vomiting Neurologic: denies: Altered mental status, Headache PD PAST MEDICAL HISTORY - Past Medical History Cardiovascular: None, Murmur Respiratory: None Neuro: Other Endocrine/Autoimmune: None GI: None : Indwelling catheter Psych: None Musculoskeletal: Other Derm: None - Past Surgical History Past Surgical History: Yes General: Appendectomy Ortho: Spine surgery Neuro: Other Derm: Debridement - Present Medications Home Medications: Ambulatory Orders Medication Instructions Recorded Confirmed Acetaminophen/Diphenhydramine 650 mg PO Q4HR PRN 07/13/13 11/26/18 [Tylenol Pm Ex-Strength Caplet] Bisacodyl [Laxative] 10 mg PO DAILY 07/13/13 11/26/18 Cranberry 2,000 mg PO BID 07/13/13 11/26/18 Docusate Sodium [Docu Soft] 250 mg PO DAILY 07/13/13 11/26/18 Furosemide [Lasix] 20 mg PO BID 07/13/13 11/26/18 Multivitamin [Multivitamins] 1 each PO DAILY 07/13/13 11/26/18 Ascorbic Acid [Vitamin C] 1 tab PO DAILY 11/20/14 11/26/18 Cholecalciferol [Vitamin D3] 1 tab PO DAILY 11/20/14 11/26/18 Lactobacillus Acidophilus 1 cap PO DAILY 11/20/14 11/26/18 [Probiotic] Nitroglycerin 2% Oint [Nitro-Bid 1 inch TOP Q8HR PRN 11/20/14 11/26/18 2% Oint] Phenazopyridine HCl [Pyridium] 200 mg PO TID PRN #6 tablet 11/26/18 Senna [Senokot] 8.6 mg PO DAILY 11/26/18 11/26/18 Sulfamethox/Trimeth 800/160 1 each PO BID #20 tablet 11/26/18 [Bactrim Ds 800/160] Famotidine 20 mg PO DAILY #20 tablet 11/28/18 Ciprofloxacin HCl [Cipro] 500 mg PO BID 14 Days #28 tablet 07/10/19 Doxycycline Monohydrate 100 mg PO BID #20 tablet 11/22/19 - Allergies Allergies/Adverse Reactions: Allergies Allergy/AdvReac Type Severity Reaction Status Date / Time No Known Drug Allergies Allergy Verified 07/10/19 12:47 - Social History Does the pt smoke?: No Smoking Status: Never smoker Does the pt drink ETOH?: No Does the pt have substance abuse?: No - Immunizations Immunizations are current?: Yes PD ED PE NORMAL - Vitals Vital signs reviewed: Yes - General General: Alert and oriented X 3, No acute distress, Well developed/nourished, Other (wheelchair bound. ) - Abdomen Abdomen: Soft, Non tender - Back Back: No CVA TTP - Derm Derm: Normal color, Warm and dry Results - Vitals Vitals: Vital Signs - 24 hr 11/22/19 09:02 Temperature 36 C L Heart Rate 83 Respiratory 16 Rate Blood Pressure 124/76 O2 Saturation 95 Oxygen O2 Source Room air - Labs Labs: Laboratory Tests 11/22/19 09:08 Urine Color YELLOW Urine Clarity HAZY Urine pH 7.0 Ur Specific [place] 1.010 Urine Protein NEGATIVE Urine Glucose (UA) NEGATIVE Urine Ketones NEGATIVE Urine Occult Blood MODERATE H Urine Nitrite POSITIVE H Urine Bilirubin NEGATIVE Urine Urobilinogen 0.2 (NORMAL) Ur Leukocyte Esterase LARGE H Urine RBC 11-25 H Urine WBC 11-25 H Urine WBC Clumps PRESENT Ur Squamous Epith Cells NONE SEEN Urine Bacteria Few Ur Microscopic Review INDICATED Urine Culture Comments INDICATED PD MEDICAL DECISION MAKING - ED course Complexity details: reviewed old records (looked at prior urine cultures and common was Citrobacter and staph, with sensitivities to Tetracycline for both, so will start with Doxycycline. ), considered differential, d/w patient Departure - Departure Disposition: 01 Home, Self Care Clinical Impression: UTI (urinary tract infection) Qualifiers: Urinary tract infection type: acute cystitis Hematuria presence: without hematuria Qualified Code(s): N30.00 - Acute cystitis without hematuria Condition: Stable Record reviewed to determine appropriate education?: Yes Instructions: ED UTI Cystitis Male Follow-Up: Jose Baez MD [Primary Care Provider] - Prescriptions: Doxycycline Monohydrate 100 mg PO BID #20 tablet Comments: Doxycycline twice daily for 10 days for the infection. The culture will result in 2 days and we can modify the antibiotic choice if needed. The doxycycline would be effective on the infections you have had in the past so I am choosing that one at this point. Continue your other usual medications. Discharge Date/Time: 11/22/19 10:29
[2019-11-22] MEDS ORDERED: DOXYCYCLINE 100 MG TABLET PO STA (10:15)
== END 2019-11-22 10:29 | disposition home or self-care (01) ==
LOC: ED 08:52
DX: N30.00 Acute cystitis without hematuria (principal); Z99.3 Dependence on wheelchair
CPT/HCPCS: 81001; 87077; 87086; 87181; 99283; A9270; 81003

== ENCOUNTER 2020-03-14 08:00 | Outpatient (CLI) | payer MEDICAID, OTHER ==
[2020-03-14 09:24] LABS: BILIRUBIN,URINE NEGATIVE (NEGATIVE); GLUCOSE, URINE (UA) NEGATIVE (NEGATIVE); KETONES,URINE (UA) NEGATIVE (NEGATIVE); LEUKOCYTE ESTERASE, URINE LARGE (NEGATIVE); NITRITE,URINE POSITIVE (NEGATIVE); OCCULT BLOOD,URINE SMALL (NEGATIVE); PROTEIN,URINE NEGATIVE (NEGATIVE); UROBILINOGEN,URINE 0.2 (NORMAL) E.U./dL (NORMAL)
[2020-03-14 09:32] LABS: CLARITY,URINE SL. CLOUDY (CLEAR)
[2020-03-14 09:41] LABS: BACTERIA,URINE Moderate /HPF (None Seen); SQUAMOUS EPITHELIAL CELL,UR MOD Squamous (<= Few)
== END 2020-03-14 23:59 | disposition home or self-care (01) ==
LOC: LAB.R 08:00
PROVIDERS: ATTEND Family Medicine
DX: N39.0 Urinary tract infection, site not specified (principal)
CPT/HCPCS: 81001; 81003; 87086

== ENCOUNTER 2020-03-19 08:51 | Outpatient (CLI) | payer OTHER | END 2020-03-19 08:52 | disposition short-term general hospital (02) | LOC: EMS 08:51 | PROVIDERS: ATTEND Surgery | DX: R10.9 Unspecified abdominal pain (principal); R19.8 Other specified symptoms and signs involving the digestive system and abdomen | CPT/HCPCS: A0425; A0429 ==

== ENCOUNTER 2020-12-17 08:36 | Outpatient (CLI) | payer OTHER | END 2020-12-17 08:37 | disposition critical access hospital (66) | LOC: EMS 08:36 | PROVIDERS: ATTEND Emergency Medicine | DX: K59.00 Constipation, unspecified (principal) | CPT/HCPCS: A0425; A0429 ==

== ENCOUNTER 2020-12-17 08:44 | Emergency (ER) | payer MEDICAID, OTHER ==
--- NOTE | 2020-12-17 09:00 | ED Physician Documentation ---
PD HPI ABD PAIN - Stated complaint Stated Complaint: ELEVATED BP - Chief complaint Chief Complaint: Abd Pain - History obtained from History obtained from: Patient, Family - Additional information Additional information: 54-year-old gentleman with history of C6 spinal cord injury, neurogenic bladder. For about a week his bowel movements "have not been right," small hard stools. Has not had a bowel movement at all in 4 days now that is despite taking MiraLAX, senna, Doca state, and enemas. Nothing comes out with the enemas. Causing his blood pressure to go up and he developed a headache with it. The headache is worse when his inserts the enemas. No fevers. Review of Systems Constitutional: denies: Fever, Chills GI: reports: Constipation. denies: Abdominal Pain, Nausea, Vomiting, Bloody / black stool PD PAST MEDICAL HISTORY - Past Medical History Cardiovascular: None, Murmur Respiratory: None Neuro: Other Endocrine/Autoimmune: None GI: None : Indwelling catheter Psych: None Musculoskeletal: Other Derm: None - Past Surgical History Past Surgical History: Yes General: Appendectomy Ortho: Spine surgery Neuro: Other Derm: Debridement - Present Medications Home Medications: Ambulatory Orders Medication Instructions Recorded Confirmed Acetaminophen/Diphenhydramine 650 mg PO Q4HR PRN 07/13/13 11/26/18 [Tylenol Pm Ex-Strength Caplet] Bisacodyl [Laxative] 10 mg PO DAILY 07/13/13 11/26/18 Cranberry 2,000 mg PO BID 07/13/13 11/26/18 Docusate Sodium [Docu Soft] 250 mg PO DAILY 07/13/13 11/26/18 Furosemide [Lasix] 20 mg PO BID 07/13/13 11/26/18 Multivitamin [Multivitamins] 1 each PO DAILY 07/13/13 11/26/18 Ascorbic Acid [Vitamin C] 1 tab PO DAILY 11/20/14 11/26/18 Cholecalciferol [Vitamin D3] 1 tab PO DAILY 11/20/14 11/26/18 Lactobacillus Acidophilus 1 cap PO DAILY 11/20/14 11/26/18 [Probiotic] Nitroglycerin 2% Oint [Nitro-Bid 1 inch TOP Q8HR PRN 11/20/14 11/26/18 2% Oint] Phenazopyridine HCl [Pyridium] 200 mg PO TID PRN #6 tablet 11/26/18 Senna [Senokot] 8.6 mg PO DAILY 11/26/18 11/26/18 Sulfamethox/Trimeth 800/160 1 each PO BID #20 tablet 11/26/18 [Bactrim Ds 800/160] Famotidine 20 mg PO DAILY #20 tablet 11/28/18 Ciprofloxacin HCl [Cipro] 500 mg PO BID 14 Days #28 tablet 07/10/19 Doxycycline Monohydrate 100 mg PO BID #20 tablet 11/22/19 HYDROcod/ACETAM 5/325 [[place] 5/325] 1 - 2 tab PO Q6H PRN #15 tab 12/17/20 Tamsulosin [Flomax] 0.4 mg PO DAILY #14 cap 12/17/20 - Allergies Allergies/Adverse Reactions: Allergies Allergy/AdvReac Type Severity Reaction Status Date / Time No Known Drug Allergies Allergy Verified 12/17/20 08:53 - Social History Does the pt smoke?: No Smoking Status: Never smoker Does the pt drink ETOH?: No Does the pt have substance abuse?: No - Immunizations Immunizations are current?: Yes PD ED PE NORMAL - Vitals Vital signs reviewed: Yes - General General: Alert and oriented X 3, No acute distress - Abdomen Abdomen: Other (Hyperactive bowel tones, nontender) - Rectal Rectal: Other (empty vault) - Derm Derm: Normal color, Warm and dry - Neuro Neuro: Alert and oriented X 3, Normal speech Results - Vitals Vitals: Vital Signs - 24 hr 12/17/20 12/17/20 12/17/20 08:48 08:56 10:55 Temperature 37.4 C Heart Rate 80 88 82 Respiratory 22 33 H 24 Rate Blood Pressure 189/110 H 189/110 H 113/72 O2 Saturation 97 97 96 12/17/20 12:00 Temperature 36.7 C Heart Rate 88 Respiratory 26 H Rate Blood Pressure 129/99 H O2 Saturation 93 Oxygen O2 Source Room air - EKG (time done) 0932 Rate: Rate (enter#) (80) Rhythm: NSR [place]: Normal Intervals: Normal OR QRS: Normal Ischemia: Normal ST segments, Other (Significant artifact makes the EKG difficult to interpret, that said I do not see anything obvious pathologic.) - Labs Labs: Laboratory Tests 12/17/20 12/17/20 09:33 09:33 WBC 9.8 RBC 4.31 L Hgb 13.2 L Hct 37.8 L MCV 87.7 MCH 30.6 MCHC 34.9 RDW 13.2 Plt Count 246 MPV 8.8 Neut # (Auto) 7.2 H Lymph # (Auto) 1.6 [place] # (Auto) 0.8 Eos # (Auto) 0.1 Baso # (Auto) 0.0 Absolute Nucleated RBC 0.00 Nucleated RBC % 0.0 Sodium 138 Potassium 3.5 Chloride 99 L Carbon Dioxide 25 Anion Gap 14.0 H BUN 10 Creatinine 0.4 L Estimated GFR (MDRD) 223 Glucose 109 H Calcium 8.8 Total Bilirubin 1.0 AST 16 ALT 25 Alkaline Phosphatase 67 Total Protein 7.2 Albumin 3.0 L Globulin 4.2 Albumin/Globulin Ratio 0.7 L Lipase 17 L - Rads (name of study) CT A/P Radiology: EMP read contemporaneously PD MEDICAL DECISION MAKING - ED course ED course: 54-year-old gentleman with C6 spinal cord injury and resultant paraplegia presents for what he feels like his constipation. There was no stool in the vault on rectal exam. CT imaging was done which demonstrated that he really is not constipated per se but he does have a 4 mm obstructing stone in the right ureter which I suspect is making him feel bad and causing his systemic symptoms including high blood pressure and sweats, and he probably is not eating well because he feels poorly and therefore has had decreased bowel movements. He is started on Flomax. Was feeling and looking much better after Toradol. He will follow-up with his urologist. Departure - Departure Disposition: 01 Home, Self Care Clinical Impression: Renal colic on right side, Paraplegia Condition: Good Record reviewed to determine appropriate education?: Yes Instructions: ED Stone Renal W Colic Follow-Up: Arianna Pollard MD [Physician No Access] - Within 1 week Prescriptions: Tamsulosin [Flomax] 0.4 mg PO DAILY #14 cap HYDROcod/ACETAM 5/325 [[place] 5/325] 1 - 2 tab PO Q6H PRN #15 tab PRN Reason: Pain
[2020-12-17] MEDS ORDERED: SODIUM CHLORIDE 0.9% 1,000 ML IV STA (09:20)
[2020-12-17] MEDS ORDERED: KETOROLAC 30 MG/ML VIAL IVP STA (09:20)
[2020-12-17] MEDS ORDERED: IOPAMIDOL-300 50 ML VIAL ONE (09:35)
[2020-12-17] MEDS ORDERED: IOVERSOL 320 100 ML VIAL IVP ONE ×2 (09:35→15:07)
[2020-12-17 09:41] LABS: BASOPHILS % (AUTO) 0.3 %; EOSINOPHILS # (AUTO) 0.1 10^3/uL (0.0-0.7); HGB - HEMOGLOBIN 13.2 g/dL (14.0-18.0); LYMPHOCYTES # (AUTO) 1.6 10^3/uL (1.5-3.5); LYMPHOCYTES % (AUTO) 16.6 %; MEAN CORPUSCULAR HEMOGLOBIN 30.6 pg (27.0-31.0); MEAN CORPUSCULAR HGB CONC 34.9 g/dL (32.0-36.0); MEAN CORPUSCULAR VOLUME 87.7 fL (80.0-94.0); MEAN PLATELET VOLUME 8.8 fL (7.4-11.4); MONOCYTES # (AUTO) 0.8 10^3/uL (0.0-1.0); MONOCYTES % (AUTO) 8.2 %; NEUTROPHILS # (AUTO) 7.2 10^3/uL (1.5-6.6); NEUTROPHILS % (AUTO) 73.6 %; PLT - PLATELET COUNT 246 10^3/uL (130-450); RED BLOOD COUNT 4.31 10^6/uL (4.70-6.10); RED CELL DISTRIBUTION WIDTH 13.2 % (12.0-15.0); WHITE BLOOD COUNT 9.8 x10^3/uL (4.8-10.8)
[2020-12-17 09:55] LABS: ALBUMIN/GLOBULIN RATIO 0.7 (1.0-2.2); CALCIUM 8.8 mg/dL (8.5-10.3); CREATININE 0.4 mg/dL (0.6-1.2); TOTAL PROTEIN 7.2 g/dL (6.7-8.2)
--- NOTE | 2020-12-17 11:40 | CT Report ---
PROCEDURE: Abdomen/Pelvis W INDICATIONS: IV and PO, abd pain, constipation CONTRAST: IV CONTRAST: Optiray 320 ml: 100 PO CONTRAST: Isovue 300 ml50 TECHNIQUE: After the administration of oral and intravenous contrast, 5 mm thick sections acquired from the diap hragms to the symphysis. 5 mm thick coronal and sagittal reformats were acquired. For radiation dos e reduction, the following was used: automated exposure control, adjustment of mA and/or kV accordin g to patient size. COMPARISON: None. FINDINGS: Image quality: Excellent. ABDOMEN: Lung bases: Minimal bibasilar dependent change. Heart size is normal. Solid organs: Liver and spleen are normal in size and enhancement. Gallbladder is unremarkable. Bi liary system is non dilated. Pancreas enhances normally. No adrenal nodules. Right kidney: There are multiple cysts present. Findings include a enlarging upper pole cyst which pr eviously measured 9.6 x 9.0 cm on coronal image 45/5 and currently measures 11.9 x 11.4 cm on current coronal image 46/6. Subjacent to this cyst, are 2 nonobstructing upper pole stones which have formed since the prior study. The larger stone measures 9 mm in diameter. Additionally, there is a peripelv ic cyst which is also slightly increased in size. It previously measured 5.8 x 4.2 cm on previous daniella ge 48/3. On current image 54/3 it measures 7.1 x 4.7 cm. There is an obstructing stone in the mid lef t ureter which measures approximately 4 mm. This results in moderate right hydronephrosis and a mildl y delayed nephrogram. The left kidney is unremarkable. Peritoneum and bowel: Bowel loops demonstrate normal wall thickness and caliber. No free fluid or a ir. Nodes and vessels: No retroperitoneal or mesenteric adenopathy by size criteria. Aorta and inferior vena cava are normal in size. Miscellaneous: No ventral hernias. PELVIS: Genitourinary: A Kaba catheter is present in the bladder, which is decompressed. There is a small am ount of air in the bladder, presumably secondary to the Kaba. Miscellaneous: No inguinal hernias or adenopathy. Bones: No suspicious bony lesions. No acute vertebral body compression fractures. Old mild L1 comp ression fracture. 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 IMPRESSION: 1. A 4 mm stone obstructs the mid right ureter resulting in moderate right hydronephrosis and a mild delayed right nephrogram. 2. Interval growth of 2 separate cysts of the right kidney. 3. Development of nonobstructing stones in the right kidney. Reviewed by: Denys Melara MD on 12/17/2020 11:39 AM PST Approved by: Denys Melara MD on 12/17/2020 11:39 AM PST Station ID: [id number]
[2020-12-17] MEDS ORDERED: TAMSULOSIN 0.4 MG CAPSULE PO STA (11:57)
[2020-12-17 14:45] VITALS: BP 140/89
[2020-12-17] MEDS ORDERED: IOPAMIDOL-300 50 ML VIAL PO ONE (15:07)
== END 2020-12-17 14:47 | disposition home or self-care (01) ==
LOC: EDUNIT# → ED 08:44
DX: N23 Unspecified renal colic (principal); G82.20 Paraplegia, unspecified
CPT/HCPCS: 36415; 74177; 80053; 83690; 85025; 93005; 96361; 96374; 99283; 99284; A9270; Q9967

== ENCOUNTER 2020-12-17 14:37 | Outpatient (CLI) | payer OTHER | END 2020-12-17 14:38 | disposition home or self-care (01) | LOC: EMS 14:37 | DX: G82.50 Quadriplegia, unspecified (principal) | CPT/HCPCS: A0425; A0428 ==

== ENCOUNTER 2020-12-21 01:40 | Outpatient (CLI) | payer OTHER | END 2020-12-21 01:41 | disposition critical access hospital (66) | LOC: EMS 01:40 | PROVIDERS: ATTEND Emergency Medicine | DX: R06.00 Dyspnea, unspecified (principal) | CPT/HCPCS: A0425; A0429 ==

== ENCOUNTER 2020-12-21 01:46 | Emergency (ER) | payer MEDICAID, OTHER ==
--- NOTE | 2020-12-21 02:06 | ED Physician Documentation ---
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 He was T+R from this ED 12/17/20 for c/o episodic diaphoresis and high blood pressure readings; he and his had found that sometimes these symptoms have correlated with constipation, but ED w/u instead demonstrated a 4mm right ureteral obstructing calculus; also noted were two larger right intrarenal calculi. He returns at this time due to rapid, shallow breathing. He says he does not feel short of breath, denies cough, and has not had recurrence of his diaphoresis nor high blood pressure readings, but he and his indicate that his dyspnea is clearly abnormal. He reports fever earlier in the day (12/20/20) to Tmax 100.5. He has an indwelling jacques catheter. Review of Systems Constitutional: reports: Fever. denies: Chills Cardiac: reports: Reviewed and negative Respiratory: reports: Dyspnea. denies: Cough, Wheezing : denies: Jacques Problem Skin: denies: Rash Neurologic: denies: Headache PD PAST MEDICAL HISTORY - Past Medical History Cardiovascular: None, Murmur Respiratory: None Neuro: Other Endocrine/Autoimmune: None GI: None : Indwelling catheter Psych: None Musculoskeletal: Other Derm: None - Past Surgical History Past Surgical History: Yes General: Appendectomy Ortho: Spine surgery Neuro: Other Derm: Debridement - Present Medications Home Medications: Ambulatory Orders Medication Instructions Recorded Confirmed Acetaminophen/Diphenhydramine 650 mg PO Q4HR PRN 07/13/13 11/26/18 [Tylenol Pm Ex-Strength Caplet] Bisacodyl [Laxative] 10 mg PO DAILY 07/13/13 11/26/18 Cranberry 2,000 mg PO BID 07/13/13 11/26/18 Docusate Sodium [Docu Soft] 250 mg PO DAILY 07/13/13 11/26/18 Furosemide [Lasix] 20 mg PO BID 07/13/13 11/26/18 Multivitamin [Multivitamins] 1 each PO DAILY 07/13/13 11/26/18 Ascorbic Acid [Vitamin C] 1 tab PO DAILY 11/20/14 11/26/18 Cholecalciferol [Vitamin D3] 1 tab PO DAILY 11/20/14 11/26/18 Lactobacillus Acidophilus 1 cap PO DAILY 11/20/14 11/26/18 [Probiotic] Nitroglycerin 2% Oint [Nitro-Bid 1 inch TOP Q8HR PRN 11/20/14 11/26/18 2% Oint] Senna [Senokot] 8.6 mg PO DAILY 11/26/18 11/26/18 HYDROcod/ACETAM 5/325 [[place] 5/325] 1 - 2 tab PO Q6H PRN #15 tab 12/17/20 Tamsulosin [Flomax] 0.4 mg PO DAILY #14 cap 12/17/20 Trospium Chloride [Trospium 60 mg PO BID 12/21/20 12/21/20 Chloride ER] - Allergies Allergies/Adverse Reactions: Allergies Allergy/AdvReac Type Severity Reaction Status Date / Time No Known Drug Allergies Allergy Verified 12/17/20 08:53 - Living Situation Living Situation: reports: With spouse/s.o. Living Arrangement: reports: At home - Social History Does the pt smoke?: No Smoking Status: Never smoker Does the pt drink ETOH?: No Does the pt have substance abuse?: No - Immunizations Immunizations are current?: Yes - POLST Patient has POLST: No PD ED PE NORMAL - Vitals Vital signs reviewed: Yes - General General: Alert and oriented X 3, No acute distress, Well developed/nourished - HEENT HEENT: Moist mucous membranes - Cardiac Cardiac: RRR - Respiratory Respiratory: No respiratory distress, Clear bilaterally - Abdomen Abdomen: Soft, Non distended - Male Male : Other (jacques catheter in place with clear, yellow urine in bag and tubing with scant sediment) - Derm Derm: Normal color PD ED PE EXPANDED - Cardiac Cardiac: Murmur Present (2/6 [facility] cardiac base) Results - Vitals Vitals: Vital Signs - 24 hr 12/21/20 12/21/20 12/21/20 01:58 04:00 05:32 Temperature 37.3 C 37.1 C 37.1 C Heart Rate 92 89 93 Respiratory 18 15 16 Rate Blood Pressure 127/72 115/68 112/81 H O2 Saturation 98 94 98 12/21/20 07:00 Temperature 37.4 C Heart Rate 102 H Respiratory 18 Rate Blood Pressure 157/79 H O2 Saturation 96 Oxygen O2 Source Room air - Labs Labs: Laboratory Tests 12/21/20 12/21/20 12/21/20 03:05 03:05 03:05 WBC 14.2 H RBC 4.09 L Hgb 12.3 L Hct 36.2 L MCV 88.5 MCH 30.1 MCHC 34.0 RDW 13.1 Plt Count 303 MPV 9.1 Neut # (Auto) 11.2 H Lymph # (Auto) 1.8 Hardy # (Auto) 1.1 H Eos # (Auto) 0.0 Baso # (Auto) 0.0 Absolute Nucleated RBC 0.00 Nucleated RBC % 0.0 Sodium 131 L Potassium 3.7 Chloride 97 L Carbon Dioxide 23 Anion Gap 11.0 BUN 13 Creatinine 0.8 Estimated GFR (MDRD) 100 Glucose 137 H Lactic Acid 0.9 Calcium 8.4 L Total Bilirubin 0.9 AST 19 ALT 27 Alkaline Phosphatase 89 B-Natriuretic Peptide Total Protein 7.1 Albumin 2.9 L Globulin 4.2 Albumin/Globulin Ratio 0.7 L Lipase 19 L Urine Color Urine Clarity Urine pH Ur Specific Concrete Urine Protein Urine Glucose (UA) Urine Ketones Urine Occult Blood Urine Nitrite Urine Bilirubin Urine Urobilinogen Ur Leukocyte Esterase Urine RBC Urine WBC Ur Squamous Epith Cells Urine Bacteria Ur Microscopic Review Urine Culture Comments Nasal Adenovirus (PCR) Nasal B. parapertussis DNA (PCR) Nasal Coronavir 229E PCR Nasal Coronavir HKU1 PCR Nasal Coronavir NL63 PCR Nasal Coronavir OC43 PCR Nasal Enterovir/Rhinovir PCR Nasal Influenza B PCR Nasal Influenza A PCR Nasal Parainfluen 1 PCR Nasal Parainfluen 2 PCR Nasal Parainfluen 3 PCR Nasal Parainfluen 4 PCR Nasal RSV (PCR) Nasal B.pertussis DNA PCR Nasal C.pneumoniae (PCR) Jorge Luis Human Metapneumo PCR Nasal M.pneumoniae (PCR) Nasal SARS-CoV-2 (PCR) 12/21/20 12/21/20 12/21/20 03:05 03:12 03:26 WBC RBC Hgb Hct MCV MCH MCHC RDW Plt Count MPV Neut # (Auto) Lymph # (Auto) Hardy # (Auto) Eos # (Auto) Baso # (Auto) Absolute Nucleated RBC Nucleated RBC % Sodium Potassium Chloride Carbon Dioxide Anion Gap BUN Creatinine Estimated GFR (MDRD) Glucose Lactic Acid Calcium Total Bilirubin AST ALT Alkaline Phosphatase B-Natriuretic Peptide 49 Total Protein Albumin Globulin Albumin/Globulin Ratio Lipase Urine Color YELLOW Urine Clarity CLEAR Urine pH 7.0 Ur Specific Concrete <=1.005 Urine Protein NEGATIVE Urine Glucose (UA) NEGATIVE Urine Ketones NEGATIVE Urine Occult Blood TRACE-INTA Urine Nitrite NEGATIVE Urine Bilirubin NEGATIVE Urine Urobilinogen 2 H Ur Leukocyte Esterase LARGE H Urine RBC 0-5 Urine WBC 11-25 H Ur Squamous Epith Cells FEW Squamous Urine Bacteria Few Ur Microscopic Review INDICATED Urine Culture Comments INDICATED Nasal Adenovirus (PCR) NOT DETECTED Nasal B. parapertussis DNA (PCR) NOT DETECTED Nasal Coronavir 229E PCR NOT DETECTED Nasal Coronavir HKU1 PCR NOT DETECTED Nasal Coronavir NL63 PCR NOT DETECTED Nasal Coronavir OC43 PCR NOT DETECTED Nasal Enterovir/Rhinovir PCR NOT DETECTED Nasal Influenza B PCR NOT DETECTED Nasal Influenza A PCR NOT DETECTED Nasal Parainfluen 1 PCR NOT DETECTED Nasal Parainfluen 2 PCR NOT DETECTED Nasal Parainfluen 3 PCR NOT DETECTED Nasal Parainfluen 4 PCR NOT DETECTED Nasal RSV (PCR) NOT DETECTED Nasal B.pertussis DNA PCR NOT DETECTED Nasal C.pneumoniae (PCR) NOT DETECTED Jorge Luis Human Metapneumo PCR NOT DETECTED Nasal M.pneumoniae (PCR) NOT DETECTED Nasal SARS-CoV-2 (PCR) NOT DETECTED - Rads (name of study) CT A/P Radiology: Prelim report reviewed, See rad report PD MEDICAL DECISION MAKING - ED course Complexity details: reviewed old records, reviewed results, re-evaluated patient, considered differential, d/w patient, d/w family ED course: CT A/P on 12/17/20 demonstrated right ureteral obstructing calculus and two larger intrarenal stones. Tonight's CT shows the previous ureteral stone is in approximately the same position but now with 10mm UPJ calculus with severe obstruction. WBC is 14.2 (was 9.8 four days ago). UA shows large LE (11-25 WBC/hpc on microscopy; this has been frequently noted on previous urinalyses as a consequence of his indwelling jacques catheter). D/W Dr. Pollard; plan is transfer to [facility] (hospitalist service with urology consult). D/W Dr. Banerjee, accepts to hospitalist service. Departure - Departure Disposition: 02 Transfer Acute Care Hosp Clinical Impression: Ureterolithiasis Urinary tract infection Qualifiers: Urinary tract infection type: site unspecified Hematuria presence: without hematuria Qualified Code(s): N39.0 - Urinary tract infection, site not specified Condition: Good Discharge Date/Time: 12/21/20 08:03
[2020-12-21 03:10] LABS: BASOPHILS % (AUTO) 0.2 %; EOSINOPHILS % (AUTO) 0.3 %; HCT - HEMATOCRIT 36.2 % (42.0-52.0); HGB - HEMOGLOBIN 12.3 g/dL (14.0-18.0); LYMPHOCYTES # (AUTO) 1.8 10^3/uL (1.5-3.5); LYMPHOCYTES % (AUTO) 12.6 %; MEAN CORPUSCULAR HEMOGLOBIN 30.1 pg (27.0-31.0); MEAN CORPUSCULAR VOLUME 88.5 fL (80.0-94.0); MEAN PLATELET VOLUME 9.1 fL (7.4-11.4); MONOCYTES # (AUTO) 1.1 10^3/uL (0.0-1.0); MONOCYTES % (AUTO) 7.6 %; NEUTROPHILS # (AUTO) 11.2 10^3/uL (1.5-6.6); NEUTROPHILS % (AUTO) 78.6 %; PLT - PLATELET COUNT 303 10^3/uL (130-450); RED BLOOD COUNT 4.09 10^6/uL (4.70-6.10); RED CELL DISTRIBUTION WIDTH 13.1 % (12.0-15.0); WHITE BLOOD COUNT 14.2 x10^3/uL (4.8-10.8)
[2020-12-21 03:22] LABS: ALBUMIN 2.9 g/dL (3.2-5.5); ALBUMIN/GLOBULIN RATIO 0.7 (1.0-2.2); BILIRUBIN,TOTAL 0.9 mg/dL (0.2-1.0); CALCIUM 8.4 mg/dL (8.5-10.3); CREATININE 0.8 mg/dL (0.6-1.2); POTASSIUM 3.7 mmol/L (3.5-5.0); TOTAL PROTEIN 7.1 g/dL (6.7-8.2)
[2020-12-21 03:30] LABS: BILIRUBIN,URINE NEGATIVE (NEGATIVE); GLUCOSE, URINE (UA) NEGATIVE (NEGATIVE); KETONES,URINE (UA) NEGATIVE (NEGATIVE); LEUKOCYTE ESTERASE, URINE LARGE (NEGATIVE); NITRITE,URINE NEGATIVE (NEGATIVE); OCCULT BLOOD,URINE TRACE-INTA (NEGATIVE); PROTEIN,URINE NEGATIVE (NEGATIVE); UROBILINOGEN,URINE 2 E.U./dL (NORMAL)
[2020-12-21 03:39] LABS: CLARITY,URINE CLEAR (CLEAR)
[2020-12-21 03:42] LABS: BACTERIA,URINE Few /HPF (None Seen); RBC,URINE 0-5 /HPF (0-5); SQUAMOUS EPITHELIAL CELL,UR FEW Squamous (<= Few)
[2020-12-21 04:19] LABS: B. PARAPERTUSSIS- RESP PCR PAN NOT DETECTED; B. PERTUSSIS- RESP PCR PANEL NOT DETECTED; C. PNEUMONIAE- RESP PCR PANEL NOT DETECTED; CORONAVIRUS 229E-RESP PCR NOT DETECTED; CORONAVIRUS HKU1-RESP PCR NOT DETECTED; CORONAVIRUS NL63-RESP PCR NOT DETECTED; CORONAVIRUS OC43-RESP PCR NOT DETECTED; HUMAN METAPNEUMOVIRUS NOT DETECTED; INFLUENZA A- RESP PCR PANEL NOT DETECTED; INFLUENZA B - RESP PCR PANEL NOT DETECTED; M. PNEUMONIAE- RESP PCR PANEL NOT DETECTED; PARAINFLUENZA VIRUS 1 NOT DETECTED; PARAINFLUENZA VIRUS 2 NOT DETECTED; PARAINFLUENZA VIRUS 3 NOT DETECTED; PARAINFLUENZA VIRUS 4 NOT DETECTED; RHINOVIRUS/ENTEROVIRUS NOT DETECTED; RSV- RESP PCR PANEL NOT DETECTED; SARS-CoV-2 -RESP PCR PANEL NOT DETECTED
[2020-12-21] MEDS ORDERED: SODIUM CHLORIDE 0.9% 1,000 ML IV STA ×2 (04:19→06:28)
[2020-12-21] MEDS ORDERED: PIPERACILLIN/TAZOBACTAM 3.375 GM in SODIUM CHLORIDE 0.9% MINIBAG 100 ML IV STA (05:40)
[2020-12-21 07:12] VITALS: BP 157/79
--- NOTE | 2020-12-21 08:19 | XRAY Report ---
PROCEDURE: Chest 2 View X-Ray INDICATIONS: dyspnea, fever TECHNIQUE: 2 view(s) of the chest. COMPARISON: 11.28.18 chest x-ray FINDINGS: Surgical changes and devices: Cervical thoracic fusion hardware is present. Lungs and pleura: No pleural effusions or pneumothorax. Lungs are clear. Mediastinum: Mediastinal contours are normal. Heart size is normal. Bones and chest wall: No suspicious bony abnormalities. Soft tissues appear unremarkable. IMPRESSION: No acute process. Concordant with preliminary interpretation. Reviewed by: Serg Kraft MD on 12/21/2020 7:18 AM [facility] Approved by: Serg Kraft MD on 12/21/2020 7:18 AM [facility] Station ID: [id number]
--- NOTE | 2020-12-21 08:41 | CT Report ---
PROCEDURE: Abdomen/Pelvis WO INDICATIONS: recent ureterolithiasis, now with dyspnea, fever TECHNIQUE: Noncontrast 5 mm thick sections acquired from the diaphragms to the symphysis. 5 mm coronal and sagi ttal reformats were then performed. For radiation dose reduction, the following was used: automated exposure control, adjustment of mA and/or kV according to patient size. COMPARISON: CT examination dated 12/17/2020 FINDINGS: Image quality: Excellent. ABDOMEN: Lung bases: No change in mild dependent bibasilar atelectasis. Heart size is normal. Solid organs: Liver and spleen are normal in size. Gallbladder is partially contracted Pancreas is normal in contours. No adrenal nodules. There is increased, mild right perinephric fat stranding. N o change in minimal (every fat stranding. The previously seen exophytic cystic focus within the super ior pole right kidney has increased in size and density, currently measuring roughly 13 cm in size. T here is parapelvic extension of this cystic focus, as before. There is new high density material surr ounding the right superior pole infundibulum, measuring roughly 45 mm transverse, consistent with hem orrhage. 3 mm calcification within the superior pole left kidney anteromedially is unchanged. No left hydronephrosis. Previously seen nonobstructing calculus within the right interpolar kidney posterior ly is unchanged, measuring roughly 8 mm. Moderate hydronephrosis is present. One of the previously se en right renal calculi has migrated into the right ureteropelvic junction, measuring roughly 8 mm. Wi thin the right proximal ureter, there is a 7 mm calculus, as before. Peritoneum and bowel: Unenhanced bowel loops demonstrate normal wall thickness and caliber. No free fluid or air. Nodes and vessels: No retroperitoneal or mesenteric adenopathy by size criteria. Aorta and inferior vena cava are normal in caliber. Miscellaneous: No ventral hernias. PELVIS: Genitourinary: Kaba catheter is present. Urinary bladder is decompressed. Miscellaneous: No inguinal hernias or adenopathy. Bones: No suspicious bony lesions. Chronic fracture deformity involves the left anterior acetabulum and proximal femur. No vertebral body compression fractures. IMPRESSION: 1. Hemorrhagic conversion of right superior pole cyst, which demonstrates parapelvic extension and he morrhage. Right superior pole renal cyst has increased in size secondary to intralesional hemorrhage. Follow-up ureterography is recommended to exclude underlying neoplasm. 2. Where the previously seen right renal calculi has migrated into the right ureteropelvic junction, and consequently now two separate calculi within the right extrarenal collecting system as described above. Moderate right hydronephrosis is not significantly changed. 3. Nonobstructing bilateral intrarenal calculi. 4. Concordant with preliminary interpretation. Reviewed by: Serg Kraft MD on 12/21/2020 7:39 AM [facility] Approved by: Serg Kraft MD on 12/21/2020 7:39 AM [facility] Station ID: [id number]
== END 2020-12-21 08:03 | disposition short-term general hospital (02) ==
LOC: EDUNIT# → SUPCPDRO 01:46 → ED 01:46
DX: N20.1 Calculus of ureter (principal); T83.511A Infection and inflammatory reaction due to indwelling urethral catheter, initial encounter; N39.0 Urinary tract infection, site not specified; Z20.822 Contact with and (suspected) exposure to COVID-19
CPT/HCPCS: 0202U; 36415; 71046; 74176; 80053; 81001; 83605; 83690; 83880; 85025; 87086; 96361; 96365; 99284; 99285; 81003; 87077; 87181

== ENCOUNTER 2020-12-21 08:03 | Outpatient (CLI) | payer OTHER | END 2020-12-21 08:04 | disposition short-term general hospital (02) | LOC: EMS 08:03 | PROVIDERS: ATTEND Emergency Medicine | DX: N20.2 Calculus of kidney with calculus of ureter (principal) | CPT/HCPCS: A0425; A0428 ==

== ENCOUNTER 2021-01-01 10:00 | Outpatient (CLI) | payer OTHER, BC ==
[2021-01-01 11:18] LABS: BASOPHILS % (AUTO) 0.2 %; EOSINOPHILS # (AUTO) 0.1 10^3/uL (0.0-0.7); EOSINOPHILS % (AUTO) 0.8 %; HCT - HEMATOCRIT 34.5 % (42.0-52.0); HGB - HEMOGLOBIN 12.1 g/dL (14.0-18.0); LYMPHOCYTES # (AUTO) 1.9 10^3/uL (1.5-3.5); LYMPHOCYTES % (AUTO) 20.6 %; MEAN CORPUSCULAR HEMOGLOBIN 30.6 pg (27.0-31.0); MEAN CORPUSCULAR HGB CONC 35.1 g/dL (32.0-36.0); MEAN CORPUSCULAR VOLUME 87.3 fL (80.0-94.0); MONOCYTES # (AUTO) 0.7 10^3/uL (0.0-1.0); MONOCYTES % (AUTO) 8.1 %; NEUTROPHILS # (AUTO) 6.4 10^3/uL (1.5-6.6); NEUTROPHILS % (AUTO) 69.8 %; PLT - PLATELET COUNT 268 10^3/uL (130-450); RED BLOOD COUNT 3.95 10^6/uL (4.70-6.10); RED CELL DISTRIBUTION WIDTH 13.6 % (12.0-15.0); WHITE BLOOD COUNT 9.1 x10^3/uL (4.8-10.8)
[2021-01-01 11:41] LABS: ALBUMIN 2.5 g/dL (3.2-5.5); ALBUMIN/GLOBULIN RATIO 0.7 (1.0-2.2); BILIRUBIN,TOTAL 0.7 mg/dL (0.2-1.0); CALCIUM 8.3 mg/dL (8.5-10.3); CREATININE 0.4 mg/dL (0.6-1.2); POTASSIUM 3.5 mmol/L (3.5-5.0); TOTAL PROTEIN 6.2 g/dL (6.7-8.2)
--- OUTSIDE RECORDS SUMMARY | 2021-01-26 13:17 | EXTERNAL MEDICAL SUMMARY RPT | Continuity of Care Document ---
:1965 Demographics Phone Unavailable Preferred Language Unknown Marital Status Unknown Taoist Affiliation Unknown Race Unknown Ethnic Group Unknown Author Organization [facility] Address [address] [place] [address] Phone Problems date description facility [id number] Bacteremia [facility] [id number] Methicillin susceptible Staphylococcus [facility] aureus infection as the cause of diseases classified elsewhere Social History date description facility [id number]
== END 2021-01-01 23:59 | disposition home or self-care (01) ==
LOC: LAB.R 10:00
PROVIDERS: ATTEND Internal Medicine Infectious Disease
DX: N28.1 Cyst of kidney, acquired (principal); B95.61 Methicillin susceptible Staphylococcus aureus infection as the cause of diseases classified elsewhere
CPT/HCPCS: 80053; 85025

== ENCOUNTER 2021-07-20 08:54 | Outpatient (CLI) | payer OTHER, BC ==
[2021-07-20 09:17] LABS: BASOPHILS % (AUTO) 0.5 %; EOSINOPHILS # (AUTO) 0.1 10^3/uL (0.0-0.7); HCT - HEMATOCRIT 46.8 % (42.0-52.0); HGB - HEMOGLOBIN 15.7 g/dL (14.0-18.0); LYMPHOCYTES # (AUTO) 2.4 10^3/uL (1.5-3.5); LYMPHOCYTES % (AUTO) 37.2 %; MEAN CORPUSCULAR HEMOGLOBIN 29.2 pg (27.0-31.0); MEAN CORPUSCULAR HGB CONC 33.5 g/dL (32.0-36.0); MEAN PLATELET VOLUME 9.6 fL (7.4-11.4); MONOCYTES # (AUTO) 0.4 10^3/uL (0.0-1.0); MONOCYTES % (AUTO) 6.4 %; NEUTROPHILS # (AUTO) 3.4 10^3/uL (1.5-6.6); NEUTROPHILS % (AUTO) 53.7 %; PLT - PLATELET COUNT 183 10^3/uL (130-450); RED BLOOD COUNT 5.38 10^6/uL (4.70-6.10); RED CELL DISTRIBUTION WIDTH 14.6 % (12.0-15.0); WHITE BLOOD COUNT 6.4 x10^3/uL (4.8-10.8)
[2021-07-20 09:33] LABS: ALBUMIN 3.9 g/dL (3.2-5.5); ALBUMIN/GLOBULIN RATIO 1.3 (1.0-2.2); ALKALINE PHOSPHATASE 49 IU/L (42-121); ALT ALANINE AMINOTRANSFERASE 21 IU/L (10-60); AST ASPARTATE AMINOTRANSFERASE 18 IU/L (10-42); BILIRUBIN,TOTAL 0.5 mg/dL (0.2-1.0); BUN - BLOOD UREA NITROGEN 12 mg/dL (6-20); CARBON DIOXIDE - CO2 25 mmol/L (21-32); CHLORIDE 101 mmol/L (101-111); CHOL/HDL RATIO 4.8 (<5.0); CHOLESTEROL 203 mg/dL; CREATININE 0.4 mg/dL (0.6-1.2); GFR - MDRD 222 (>89); GLUCOSE 102 mg/dL (70-100); HDL CHOLESTEROL 42 mg/dL; LDL CHOLESTEROL,CALCULATED 132 mg/dL; LDL/HDL RATIO 3.1 (<3.6); POTASSIUM 3.7 mmol/L (3.5-5.0); SODIUM 136 mmol/L (135-145); TRIGLYCERIDES 146 mg/dL; VLDL CHOLESTEROL 29 mg/dL
[2021-07-20 09:44] LABS: THYROID STIMULATING HORMONE 1.92 uIU/mL (0.34-5.60)
== END 2021-07-20 08:55 | disposition home or self-care (01) ==
LOC: LAB 08:54
PROVIDERS: ATTEND Physician Assistant Medical
DX: Z00.00 Encounter for general adult medical examination without abnormal findings (principal); Z12.5 Encounter for screening for malignant neoplasm of prostate; R78.81 Bacteremia
CPT/HCPCS: 36415; 80053; 80061; 83721; 84153; 84443; 85025

== ENCOUNTER 2021-08-18 09:51 | Outpatient (CLI) | payer OTHER, BC ==
[2021-08-18] MEDS ORDERED: GADOBUTROL 15 MMOL/15 ML VIAL ONE (10:57)
--- NOTE | 2021-08-18 11:11 | XRAY Report ---
PROCEDURE: Abdomen 1 View X-Ray INDICATIONS: NEPHROLITHIASIS TECHNIQUE: 1 view of the abdomen were acquired. COMPARISON: Reference is made to the CT abdomen and pelvis report dated December 21, 2020 FINDINGS: Surgical changes and devices: Linear device overlying the pelvis, which may reflect a Kaba catheter. Bowel: No pneumoperitoneum. Nonobstructive bowel gas pattern. Soft tissues: No masses; visualized solid organ contours appear normal in size. Calcific focus in th e expected location of the right kidney, which may reflect nephrolithiasis. Bones: Irregularity of the left intertrochanteric region, which may reflect prior injury. IMPRESSION: 1. Nonobstructive bowel gas pattern. 2. Right nephrolithiasis. Consider cross-sectional imaging as clinically warranted. Reviewed by: Jameson Ku MD on 08/18/2021 11:09 AM PDT Approved by: Jameson Ku MD on 08/18/2021 11:09 AM PDT Station ID: [id number]
--- NOTE | 2021-08-18 14:53 | MRI Report ---
PROCEDURE: Pelvis W/WO INDICATIONS: LEFT BUTTOCK ULCER CONTRAST: IV CONTRAST: Gadavist ml: 10 TECHNIQUE: Coronal ultra fast SE, sagittal breath-hold T2 FSE; axial T1 FSE with and without fat saturation thro ugh the pelvis. Optional long- and short-axis uterine nonbreath-hold T2 FSE through the uterus. Sag ittal or axial dynamic ultra fast GE during administration of contrast. Post-contrast axial or coron al ultra fast GE / 2-D spoiled GE with fat saturation from the iliac crests to the symphysis. Option al diffusion weighted imaging and ADC may be performed. COMPARISON: None. FINDINGS: There is a decubitus ulcer in the medial left buttock. Associated edema and enhancement extend deep t o the adjacent inferior and posterior aspect of the left coccyx and sacrococcygeal junction with asso ciated marrow edema and enhancement indicative of osteomyelitis. There is also myositis of the left g luteus hermilo. IMPRESSION: Grade 4 left buttock decubitus ulcer with extension to the sacrococcygeal junction. Asso ciated marrow edema and enhancement suggestive of osteomyelitis in this location. Reviewed by: Buddy Mcintosh MD on 08/18/2021 2:52 PM PDT Approved by: Buddy Mcintosh MD on 08/18/2021 2:52 PM PDT Station ID: [id number]
[2021-08-18] MEDS: GADOBUTROL 15 MMOL/15 ML VIAL IVP ONE (16:54)
== END 2021-08-18 09:52 | disposition home or self-care (01) ==
LOC: DI 09:51
PROVIDERS: ATTEND Nurse Practitioner
DX: L89.324 Pressure ulcer of left buttock, stage 4 (principal); G82.20 Paraplegia, unspecified; N20.0 Calculus of kidney; Z87.442 Personal history of urinary calculi
CPT/HCPCS: 72197; 74018; A9585

== ENCOUNTER 2022-09-27 09:56 | Outpatient (CLI) | payer OTHER, BC ==
[2022-09-27 10:12] LABS: BASOPHILS % (AUTO) 0.5 %; EOSINOPHILS # (AUTO) 0.1 10^3/uL (0.0-0.7); EOSINOPHILS % (AUTO) 1.3 %; HCT - HEMATOCRIT 45.3 % (42.0-52.0); HGB - HEMOGLOBIN 15.7 g/dL (14.0-18.0); LYMPHOCYTES # (AUTO) 2.3 10^3/uL (1.5-3.5); LYMPHOCYTES % (AUTO) 36.5 %; MEAN CORPUSCULAR HEMOGLOBIN 30.2 pg (27.0-31.0); MEAN CORPUSCULAR HGB CONC 34.7 g/dL (32.0-36.0); MEAN CORPUSCULAR VOLUME 87.1 fL (80.0-94.0); MEAN PLATELET VOLUME 9.1 fL (7.4-11.4); MONOCYTES # (AUTO) 0.5 10^3/uL (0.0-1.0); MONOCYTES % (AUTO) 7.1 %; NEUTROPHILS # (AUTO) 3.5 10^3/uL (1.5-6.6); NEUTROPHILS % (AUTO) 54.4 %; PLT - PLATELET COUNT 162 10^3/uL (130-450); WHITE BLOOD COUNT 6.4 x10^3/uL (4.8-10.8)
[2022-09-27 10:25] LABS: ALBUMIN 3.4 g/dL (3.2-5.5); CALCIUM 9.3 mg/dL (8.5-10.3); CREATININE 0.4 mg/dL (0.6-1.2); PHOSPHORUS 3.2 mg/dL (2.5-4.6); POTASSIUM 3.3 mmol/L (3.5-5.0)
== END 2022-09-27 09:57 | disposition home or self-care (01) ==
LOC: LAB 09:56
PROVIDERS: ATTEND Internal Medicine Nephrology
DX: N20.0 Calculus of kidney (principal)
CPT/HCPCS: 36415; 80069; 85025

== ENCOUNTER 2022-10-18 09:20 | Emergency (ER) | payer OTHER, BC ==
[2022-10-18 09:41] VITALS: BP 110/77
[2022-10-18 10:06] LABS: BILIRUBIN,URINE NEGATIVE (NEGATIVE); GLUCOSE, URINE (UA) NEGATIVE (NEGATIVE); KETONES,URINE (UA) NEGATIVE (NEGATIVE); LEUKOCYTE ESTERASE, URINE SMALL (NEGATIVE); NITRITE,URINE POSITIVE (NEGATIVE); OCCULT BLOOD,URINE TRACE-INTA (NEGATIVE); PROTEIN,URINE NEGATIVE (NEGATIVE); UROBILINOGEN,URINE 0.2 (NORMAL) E.U./dL (NORMAL)
[2022-10-18 10:07] LABS: CLARITY,URINE HAZY (CLEAR)
[2022-10-18 10:12] LABS: BACTERIA,URINE Moderate /HPF (None Seen); RBC,URINE 0-5 /HPF (0-5); SQUAMOUS EPITHELIAL CELL,UR NONE SEEN (<= Few)
--- NOTE | 2022-10-18 11:13 | ED Physician Documentation ---
PD HPI MALE - Stated complaint Stated Complaint: MALE - Chief complaint Chief Complaint: UTI - History obtained from History obtained from: Patient, Family - History of Present Illness Timing - onset: How many days ago (several) Timing - duration: Days (several) Timing - details: Waxing and waning Associated symptoms: Indwelling catheter, Other (he has noted urine from jacques being cloudy and malodorous, with increased sediment, causing clogging of the jacques and requiring changing of it by his twice the past few days. he has felt some cramping of the bladder 9has diminished sensation due to prior cord injury0, and also having some AD.) Similar symptoms before: Diagnosis (has had similar symptoms and associated episodes of autonomic dysfunction (AD) with true uti infections before.) Recently seen: Not recently seen Review of Systems Constitutional: reports: Chills, Fatigue. 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 ) Derm: None - Past Surgical History Past Surgical History: Yes General: Appendectomy Ortho: Spine surgery Neuro: Other Derm: Debridement, Other (multiple procedures for decubiti) - Present Medications Home Medications: Ambulatory Orders Medication Instructions Recorded Confirmed Acetaminophen/Diphenhydramine 500 mg PO Q4HR PRN 07/13/13 03/11/21 [Tylenol Pm Ex-Strength Caplet] Bisacodyl [Laxative] 5 mg PO QPM 07/13/13 03/11/21 Cranberry 2,000 mg PO DAILY 07/13/13 03/11/21 Docusate Sodium [Docu Soft] 250 mg PO BID 07/13/13 03/11/21 Furosemide [Lasix] 20 mg PO BID 07/13/13 03/11/21 Multivitamin [Multivitamins] 1 each PO DAILY 07/13/13 03/11/21 Cholecalciferol [Vitamin D3] 1 tab PO DAILY 11/20/14 03/11/21 Lactobacillus Acidophilus 1 cap PO DAILY 11/20/14 03/11/21 [Probiotic] Nitroglycerin 2% Oint [Nitro-Bid 1 inch TOP Q8HR PRN 11/20/14 11/26/18 2% Oint] Senna [Senokot] 2 tab PO BID 11/26/18 03/11/21 HYDROcod/ACETAM 5/325 [[place] 5/325] 1 - 2 tab PO Q6H PRN #15 tab 12/17/20 03/11/21 Trospium Chloride [Trospium 120 mg PO DAILY 12/21/20 03/11/21 Chloride ER] Calcium Carbonate [Tums (Calcium 1,000 mg PO DAILY PRN 03/11/21 03/11/21 Carbonate 500mg)] Sulfamethox/Trimeth 800/160 1 tablet PO BID 10 Days #20 tablet 12/14/21 [Bactrim Ds] Phenazopyridine HCl [Pyridium] 100 mg PO TID PRN #15 tablet 10/18/22 levoFLOXacin [Levaquin] 250 mg PO QD #10 tablet 10/18/22 - Allergies Allergies/Adverse Reactions: Allergies Allergy/AdvReac Type Severity Reaction Status Date / Time No Known Drug Allergies Allergy Verified 10/18/22 09:41 - Social History Does the pt smoke?: No Smoking Status: Never smoker Does the pt drink ETOH?: No Does the pt have substance abuse?: No - Immunizations Immunizations are current?: Yes - POLST Patient has POLST: No PD ED PE NORMAL - Vitals Vital signs reviewed: Yes - General General: Alert and oriented X 3, Well developed/nourished, Other (in motorized wheelchair) - Abdomen Abdomen: Soft, Non tender - Male Male : Deferred - Rectal Rectal: Deferred - Derm Derm: Normal color, Warm and dry - Neuro Neuro: Alert and oriented X 3, Normal speech Results - Vitals Vitals: Vital Signs - 24 hr 10/18/22 09:37 Temperature 36.1 C L Heart Rate 84 Respiratory 16 Rate Blood Pressure 110/77 O2 Saturation 97 Oxygen O2 Source Room air - Labs Labs: Laboratory Tests 10/18/22 09:57 Urine Color YELLOW Urine Clarity HAZY Urine pH 7.0 Ur Specific [place] 1.015 Urine Protein NEGATIVE Urine Glucose (UA) NEGATIVE Urine Ketones NEGATIVE Urine Occult Blood TRACE-INTA Urine Nitrite POSITIVE H Urine Bilirubin NEGATIVE Urine Urobilinogen 0.2 (NORMAL) Ur Leukocyte Esterase SMALL H Urine RBC 0-5 Urine WBC 6-10 H Ur Squamous Epith Cells NONE SEEN Urine Bacteria Moderate H Ur Microscopic Review INDICATED Urine Culture Comments INDICATED PD Medical Decision Making - ED course Complexity details: reviewed old records (infrequent prior UTIs, with cultures of Seratia, citrobacter and enterococcus. Common sensitivity to quinolones and variable resistance to sulfa/cephalosporins. ), considered differential (given his symptoms c/w prior utis, can check a urine (expect it to have some findings due to chronic jacques, but will presume active infection, start abx and await cultures. ), d/w patient Departure - Departure Disposition: Home, Self Care Clinical Impression: UTI (urinary tract infection), Jacques catheter in place Condition: Stable Record reviewed to determine appropriate education?: Yes Instructions: ED UTI Cystitis Male Follow-Up: Mackenzie Baron PA-C [Primary Care Provider] - Prescriptions: levoFLOXacin [Levaquin] 250 mg PO QD #10 tablet Phenazopyridine HCl [Pyridium] 100 mg PO TID PRN #15 tablet PRN Reason: Abdominal Pain Comments: I looked at your prior urine cultures and it certainly has been good intervals in between your infections but a common thread through the last several infections has been more unusual bacteria that are resistant to the typical bladder infection medications. Previous ones have all been sensitive to the quinolones however so we can treat this with oral medication but I would go start with the quinolone such as levofloxacin daily for 10 days pending the urine culture. We will see if we need to modify it on the culture result. Out also have you take phenazopyridine 3 times daily for 5 days to help with urinary discomfort and irritation so less likely to have spasms. Recheck if not improving well symptoms over the next few days. Follow-up with your primary care. Return to the ER if worse general symptoms. I transmitted prescriptions to [facility] in [place]. Discharge Date/Time: 10/18/22 12:05
[2022-10-18] MEDS ORDERED: PHENAZOPYRIDINE 100 MG TABLET PO STA (11:48)
[2022-10-18] MEDS ORDERED: levoFLOXacin 250 MG TABLET PO STA (11:48)
--- NOTE | 2022-10-21 13:05 | ED Physician Documentation ---
ED Addendum - Addendum Addendum: 10/21/22 13:04 Culture review, he grew 3 organisms which is not unexpected given that he has had longstanding indwelling catheter. The highest colony count, the Klebsiella is sensitive to the levofloxacin the Dr. Johnson started, the E. coli is not, the Morganella is. I called and spoke with patient. He is feeling well and his urine has cleared so I think we are probably targeting the pathogenic organism and likely that the E. coli is colonizing and recommended continuation of the levofloxacin but we discussed return precautions.
== END 2022-10-18 12:05 | disposition home or self-care (01) ==
LOC: ED 09:20
DX: N39.0 Urinary tract infection, site not specified (principal); Z96.0 Presence of urogenital implants
CPT/HCPCS: 81001; 87077; 87086; 87181; 99282; 99283; A9270; 81003

== ENCOUNTER 2022-12-09 08:57 | Outpatient (CLI) | payer OTHER, BC ==
[2022-12-09 09:48] LABS: THYROID STIMULATING HORMONE 2.74 uIU/mL (0.34-5.60)
[2022-12-09 09:55] LABS: BUN - BLOOD UREA NITROGEN 11 mg/dL (6-20); CALCIUM 8.6 mg/dL (8.5-10.3); CARBON DIOXIDE - CO2 22 mmol/L (21-32); CHLORIDE 96 mmol/L (101-111); CHOL/HDL RATIO 4.7 (<5.0); CHOLESTEROL 192 mg/dL; CREATININE 0.4 mg/dL (0.6-1.2); GFR - MDRD 221 (>89); GLUCOSE 99 mg/dL (70-100); HDL CHOLESTEROL 41 mg/dL; LDL CHOLESTEROL,CALCULATED 121 mg/dL; POTASSIUM 3.7 mmol/L (3.5-5.0); SODIUM 130 mmol/L (135-145); TRIGLYCERIDES 149 mg/dL; VLDL CHOLESTEROL 30 mg/dL
== END 2022-12-09 08:58 | disposition home or self-care (01) ==
LOC: LAB 08:57
PROVIDERS: ATTEND Physician Assistant Medical
DX: Z00.00 Encounter for general adult medical examination without abnormal findings (principal); Z12.5 Encounter for screening for malignant neoplasm of prostate
CPT/HCPCS: 36415; 80048; 80061; 83721; 84153; 84443

== ENCOUNTER 2023-03-10 13:08 | Day surgery (SDC) | payer BC ==
[2023-03-10] MEDS ORDERED: LACTATED RINGERS 1,000 ML IV ONE ×3 (13:55→14:06)
--- NOTE | 2023-03-10 14:02 | ANESTHESIA ---
Pre-Anesthesia VS, & Labs - Diagnosis history of polyps - Procedure colonoscopy Vital Signs: Temp Pulse Resp BP Pulse Ox O2 Flow Rate 36.1 C L 75 18 127/78 96 03/10/23 13:45 03/10/23 13:45 03/10/23 13:45 03/10/23 13:45 03/10/23 13:45 Height: 6 ft - NPO Other (prep as directed) Home Medications and Allergies Acetaminophen/Diphenhydramine [Tylenol Pm Ex-Strength Caplet] 500 mg PO Q4HR PRN 07/13/13 Bisacodyl [Laxative] 5 mg PO QPM 07/13/13 Cranberry 2,000 mg PO DAILY 07/13/13 Docusate Sodium [Docu Soft] 250 mg PO BID 07/13/13 Multivitamin [Multivitamins] 1 each PO DAILY 07/13/13 Cholecalciferol [Vitamin D3] 1 tab PO DAILY 11/20/14 Lactobacillus Acidophilus [Probiotic] 1 cap PO DAILY 11/20/14 Senna [Senokot] 2 tab PO BID 11/26/18 Trospium Chloride [Trospium Chloride ER] 120 mg PO DAILY 12/21/20 Baclofen [Lioresal] 10 mg PO BID 11/30/22 hydroCHLOROthiazide [Hydrochlorothiazide] 25 mg PO BID 11/30/22 Allergies/Adverse Reactions: Allergies Allergy/AdvReac Type Severity Reaction Status Date / Time No Known Drug Allergies Allergy Verified 10/18/22 09:41 Anes History & Medical History - Anesthetic History Anesthesia Complications: reports: No previous complications - Medical History Cardiovascular: reports: None, Murmur Pulmonary: reports: None Gastrointestinal: reports: None Urinary: reports: Indwelling catheter Neuro: reports: Other Musculoskeletal: reports: Other Endocrine/Autoimmune: reports: None Blood Disorders: reports: None Skin: reports: None Smoking Status: Never smoker History of Cancer?: No - Surgical History General: reports: Appendectomy, Colonoscopy Neurologic: reports: Other (c 6 complete quadraplegic) Orthopedic: reports: Spine surgery Dermatologic: reports: Debridement, Other Exam General: Alert, Oriented x3 Dental: WNL Mouth Opening: Greater than 4 Fingerbreadths Mallampati classification: III Thyromental Distance: greater than 6 cm Respiratory: Lungs clear Cardiovascular: Regular rate, Normal S1 (systolic murmur), Normal S2 Plan Anesthesia Type: Total IV Consent for Procedure(s) Verified and Reviewed: Yes Code Status: Attempt Resuscitation ASA classification: 3-Severe systemic disease Is this case an emergency?: No
[2023-03-10] MEDS ORDERED: PROPOFOL 500 MG/50 ML 500 MG/50 ML VIAL ONE (14:07)
[2023-03-10] MEDS ORDERED: LACTATED RINGERS 100 ML IV ONE (15:19)
--- NOTE | 2023-03-10 15:22 | ANESTHESIA POST OP EVALUATION ---
Anesthesia Post Eval - Post Anesthesia Eval Vitals: Last Vital Signs Temp 36.6 C 03/10/23 15:20 Pulse 87 03/10/23 15:20 Resp 16 03/10/23 15:20 BP 119/73 03/10/23 15:20 Pulse Ox 96 03/10/23 15:20 O2 Flow Rate CV Function Including HR & BP: Stable Pain Control: Satisfactory Nausea & Vomiting: Negative Mental Status: Baseline Respiratory Status: Airway Patent Hydration Status: Satisfactory Anesthesia Complications: None
[2023-03-10 15:50] VITALS: BP 107/55
== END 2023-03-10 13:09 | disposition home or self-care (01) ==
LOC: SDS 13:08
PROVIDERS: ATTEND Surgery
DX: Z12.11 Encounter for screening for malignant neoplasm of colon (principal); K59.39 Other megacolon; G47.30 Sleep apnea, unspecified; Z86.010 Personal history of colon polyps
CPT/HCPCS: 45378; J7120

== ENCOUNTER 2023-06-15 10:37 | Outpatient (CLI) | payer BC | END 2023-06-15 10:38 | disposition home or self-care (01) | LOC: LAB 10:37 | PROVIDERS: ATTEND Physician Assistant Medical | DX: R97.20 Elevated prostate specific antigen [PSA] (principal) | CPT/HCPCS: 36415; 84153; 84154 ==

== ENCOUNTER 2023-07-27 08:00 | Outpatient (CLI) | payer BC | END 2023-07-27 23:59 | disposition home or self-care (01) | LOC: LAB.N 08:00 | PROVIDERS: ATTEND Physician Assistant | DX: R82.90 Unspecified abnormal findings in urine (principal) | CPT/HCPCS: 87077; 87086; 87181 ==

== ENCOUNTER 2023-08-18 09:20 | Outpatient (CLI) | payer OTHER, BC | END 2023-08-18 09:21 | disposition home or self-care (01) | LOC: DI 09:20 | PROVIDERS: ATTEND Physician Assistant Medical | DX: I51.7 Cardiomegaly (principal); I49.3 Ventricular premature depolarization; I77.810 Thoracic aortic ectasia | CPT/HCPCS: 93306 ==

== ENCOUNTER 2023-09-06 14:55 | Emergency (ER) | payer OTHER, BC ==
[2023-09-06 15:36] LABS: BASOPHILS % (AUTO) 0.3 %; EOSINOPHILS # (AUTO) 0.1 10^3/uL (0.0-0.7); HGB - HEMOGLOBIN 16.2 g/dL (14.0-18.0); LYMPHOCYTES # (AUTO) 2.2 10^3/uL (1.5-3.5); LYMPHOCYTES % (AUTO) 24.8 %; MEAN CORPUSCULAR HGB CONC 33.8 g/dL (32.0-36.0); MEAN PLATELET VOLUME 9.2 fL (7.4-11.4); MONOCYTES % (AUTO) 11.2 %; NEUTROPHILS # (AUTO) 5.5 10^3/uL (1.5-6.6); NEUTROPHILS % (AUTO) 62.5 %; PLT - PLATELET COUNT 226 10^3/uL (130-450); RED BLOOD COUNT 5.58 10^6/uL (4.70-6.10); RED CELL DISTRIBUTION WIDTH 14.6 % (12.0-15.0); WHITE BLOOD COUNT 8.8 x10^3/uL (4.8-10.8)
--- NOTE | 2023-09-06 15:37 | ED Physician Documentation ---
History of Present Illness - Stated complaint Stated Complaint: SENT BY UROLOGIST - Chief complaint Chief Complaint: General - Additonal information Additional information: 57-year-old male who is a wheelchair-bound C6 quadriplegic with a past medical history most significant for autonomic dysreflexia, quadriplegia and quadriparesis, neurogenic bladder, aortic stenosis, left foot ulceration, Chronic indwelling Kaba catheter with recurrent urinary tract infections presents to the emergency department by the advice of his urology office for concerns that he is passing stones as well as having body tingling. Patient's states that he has been passing stones about half the size of a Peppercorn. No obvious hematuria. Patient completed antibiotics about 1 month ago for a urinary tract infection. Patient reported a fever yesterday of 100.7. He has some congestion but no cough. Review of Systems Constitutional: reports: Fever : reports: Other (passing stones) Skin: reports: Other Neurologic: reports: Other (tingling sensations) PD PAST MEDICAL HISTORY - Past Medical History Past Medical History: Yes Cardiovascular: Murmur Respiratory: None Neuro: Other Endocrine/Autoimmune: None GI: None : Chronic bladder infection, Indwelling catheter, Kidney stones HEENT: None Psych: None Musculoskeletal: Quadriplegia, Other Derm: None - Past Surgical History Past Surgical History: Yes General: Appendectomy, Colonoscopy Ortho: Spine surgery Neuro: Other Derm: Debridement, Other - Present Medications Home Medications: Ambulatory Orders Medication Instructions Recorded Confirmed Acetaminophen/Diphenhydramine 500 mg PO HS 07/13/13 09/06/23 [Tylenol Pm Ex-Strength Caplet] Bisacodyl [Laxative] 5 mg PO QPM 07/13/13 09/06/23 Cranberry 2,000 mg PO DAILY 07/13/13 09/06/23 Docusate Sodium [Docu Soft] 250 mg PO BID 07/13/13 09/06/23 Cholecalciferol [Vitamin D3] 1 tab PO DAILY 11/20/14 09/06/23 Lactobacillus Acidophilus 1 cap PO DAILY 11/20/14 09/06/23 [Probiotic] Senna [Senokot] 2 tab PO BID 11/26/18 09/06/23 Trospium Chloride [Trospium 120 mg PO DAILY 12/21/20 09/06/23 Chloride ER] Baclofen [Lioresal] 10 mg PO BID 11/30/22 09/06/23 hydroCHLOROthiazide 25 mg PO BID 11/30/22 09/06/23 [Hydrochlorothiazide] Cefpodoxime Proxetil [Vantin] 100 mg PO Q12H #20 tablet 09/06/23 - Allergies Allergies/Adverse Reactions: Allergies Allergy/AdvReac Type Severity Reaction Status Date / Time No Known Drug Allergies Allergy Verified 09/06/23 14:59 - Social History Does the pt smoke?: No Smoking Status: Never smoker Does the pt drink ETOH?: No Does the pt have substance abuse?: No - Immunizations Immunizations are current?: Yes - POLST Patient has POLST: No PD ED PE EXPANDED - General General: Alert, No acute distress, Other (obese; good hygeine) - Cardiac Cardiac: Regular Rate, Radial strong equal, Pedal strong equal, Cap refill < 2 sec - Respiratory Respiratory: Clear to ausultation frankie. No: Distress, Labored - Abdomen Abdomen: Other (Palpation of the abdomen revealed no obvious discomfort for the patient or abnormal sensations) - Derm Derm: Normal color, Warm and dry. No: Rash Results - Vitals Vitals: Vital Signs - 24 hr 09/06/23 09/06/23 09/06/23 14:59 17:07 19:00 Temperature 37.4 C 36.5 C Heart Rate 100 91 88 Respiratory 20 18 16 Rate Blood Pressure 127/96 H 129/95 H 126/88 H O2 Saturation 96 93 96 Oxygen O2 Source Room air - Labs Labs: Laboratory Tests 09/06/23 09/06/23 09/06/23 15:28 15:28 16:08 WBC 8.8 RBC 5.58 Hgb 16.2 Hct 48.0 MCV 86.0 MCH 29.0 MCHC 33.8 RDW 14.6 Plt Count 226 MPV 9.2 Neut # (Auto) 5.5 Lymph # (Auto) 2.2 Ector # (Auto) 1.0 Eos # (Auto) 0.1 Baso # (Auto) 0.0 Absolute Nucleated RBC 0.00 Nucleated RBC % 0.0 Sodium 134 L Potassium 3.1 L Chloride 97 L Carbon Dioxide 27 Anion Gap 10.0 BUN 17 Creatinine 0.6 Estimated GFR (MDRD) 138 Glucose 139 H Calcium 10.3 Total Bilirubin 0.6 AST 17 ALT 19 Alkaline Phosphatase 47 Total Protein 7.5 Albumin 4.4 Globulin 3.1 Albumin/Globulin Ratio 1.4 Lipase 22 Urine Color YELLOW Urine Clarity CLOUDY Urine pH 6.5 Ur Specific Garrison 1.010 Urine Protein 30 H Urine Glucose (UA) NEGATIVE Urine Ketones NEGATIVE Urine Occult Blood MODERATE H Urine Nitrite POSITIVE H Urine Bilirubin NEGATIVE Urine Urobilinogen 0.2 (NORMAL) Ur Leukocyte Esterase MODERATE H Urine RBC 6-10 H Urine WBC >25 H Ur Epithelial Cells FEW Transitional Ur Squamous Epith Cells FEW Squamous Urine Bacteria Many H Ur Microscopic Review INDICATED Urine Culture Comments INDICATED Nasal Adenovirus (PCR) Nasal B. parapertussis DNA (PCR) Nasal Coronavir 229E PCR Nasal Coronavir HKU1 PCR Nasal Coronavir NL63 PCR Nasal Coronavir OC43 PCR Nasal Enterovir/Rhinovir PCR Nasal Influenza B PCR Nasal Influenza A PCR Nasal Parainfluen 1 PCR Nasal Parainfluen 2 PCR Nasal Parainfluen 3 PCR Nasal Parainfluen 4 PCR Nasal RSV (PCR) Nasal B.pertussis DNA PCR Nasal C.pneumoniae (PCR) Jorge Luis Human Metapneumo PCR Nasal M.pneumoniae (PCR) Nasal SARS-CoV-2 (PCR) 09/06/23 16:19 WBC RBC Hgb Hct MCV MCH MCHC RDW Plt Count MPV Neut # (Auto) Lymph # (Auto) Ector # (Auto) Eos # (Auto) Baso # (Auto) Absolute Nucleated RBC Nucleated RBC % Sodium Potassium Chloride Carbon Dioxide Anion Gap BUN Creatinine Estimated GFR (MDRD) Glucose Calcium Total Bilirubin AST ALT Alkaline Phosphatase Total Protein Albumin Globulin Albumin/Globulin Ratio Lipase Urine Color Urine Clarity Urine pH Ur Specific Garrison Urine Protein Urine Glucose (UA) Urine Ketones Urine Occult Blood Urine Nitrite Urine Bilirubin Urine Urobilinogen Ur Leukocyte Esterase Urine RBC Urine WBC Ur Epithelial Cells Ur Squamous Epith Cells Urine Bacteria Ur Microscopic Review Urine Culture Comments Nasal Adenovirus (PCR) NOT DETECTED Nasal B. parapertussis DNA (PCR) NOT DETECTED Nasal Coronavir 229E PCR NOT DETECTED Nasal Coronavir HKU1 PCR NOT DETECTED Nasal Coronavir NL63 PCR NOT DETECTED Nasal Coronavir OC43 PCR NOT DETECTED Nasal Enterovir/Rhinovir PCR NOT DETECTED Nasal Influenza B PCR NOT DETECTED Nasal Influenza A PCR NOT DETECTED Nasal Parainfluen 1 PCR NOT DETECTED Nasal Parainfluen 2 PCR NOT DETECTED Nasal Parainfluen 3 PCR NOT DETECTED Nasal Parainfluen 4 PCR NOT DETECTED Nasal RSV (PCR) NOT DETECTED Nasal B.pertussis DNA PCR NOT DETECTED Nasal C.pneumoniae (PCR) NOT DETECTED Jorge Luis Human Metapneumo PCR NOT DETECTED Nasal M.pneumoniae (PCR) NOT DETECTED Nasal SARS-CoV-2 (PCR) NOT DETECTED - Rads (name of study) CXR Relevant Findings:: Final report received (No acute cardiopulmonary process) CT abd Relevant Findings:: Final report received (Urinary bladder decompressed around Kaba catheter. Diffuse urinary bladder wall thickening with submucosal hyperenhancement which may indicate superimposed infection.) PD Medical Decision Making - ED course Complexity details: reviewed results, re-evaluated patient, d/w patient, d/w family ED course: 57-year-old male who has a history of C6 quadriplegia for the last 12 years, chronic indwelling Kaba catheter presents the emergency department for evaluation of several days of vague tingling in his body that last for seconds. He thinks that this may be the way his body is reporting pain. He does have a history of recurrent urinary tract infections. He had also reported a temperature elevation of 100.7 yesterday. He last received a prescription for Cipro in early July. The urine culture grew Serratia which is only intermediately sensitive to Cipro. He has also reported of left several days he thinks he is passing kidney stones because he seen them in the urine. Here in the emergency department we did obtain CBC, electrolytes and urinalysis and a viral PCR. Per my interpretation CBC was entirely unremarkable without leukocytosis or anemia. Electrolytes showed mild derangement with a sodium of 134 and a potassium of 3.1. He received 50 of potassium orally in the emergency department. His Kaba catheter was changed in the emergency department and following that a new urine sample was obtained which was grossly positive for infection including blood nitrates greater than 25 WBCs and many bacteria. Given the last urine sensitivity I elected to give this patient ceftriaxone as it was sensitive to cephalosporins but he will be discharged with a prescription for Vantin. A CT of the abdomen performed showed no obstructing renal stones, hydronephrosis evidence of pyelonephritis. The urinary bladder itself was inflamed suggestive of infection. A chest x-ray showed no findings of pneumonia. Respiratory PCR was negative. At this time the patient is feeling better. Vantin is sent to the preferred pharmacy and he is discharged home in stable condition and will follow closely with his primary care provider. The usual emergent return precautions for worsening symptoms was discussed Departure - Departure Disposition: 01 Home, Self Care Clinical Impression: Quadriplegia UTI (urinary tract infection) due to urinary indwelling Kaba catheter Qualifiers: Indwelling urinary catheter type: indwelling urethral catheter Encounter type: initial encounter Qualified Code(s): T83.511A - Infection and inflammatory reaction due to indwelling urethral catheter, initial encounter; N39.0 - Urinary tract infection, site not specified Condition: Stable Record reviewed to determine appropriate education?: Yes Prescriptions: Cefpodoxime Proxetil [Vantin] 100 mg PO Q12H #20 tablet Comments: You are seen today because for the last several days you have had vague tingling in your body and felt that you are passing kidney stones. Your CBC today was normal. Your electrolytes showed a very mildly low potassium of 3.1. You were given an extra dose of potassium in the emergency department. Your urine suggests infection though persons that have chronic indwelling Kaba catheter often have signs of infection in the urine. Your chest x-ray was normal and showed no findings of pneumonia. A respiratory viral panel was also negative. A CT of the abdomen showed no findings to suggest infection around the kidneys, obstructing kidney stones, swelling of the kidney. It does show an inflamed bladder most consistent with infection. Based on your last cultures and sensitivities I am starting you on an antibiotic called Vantin that you will take twice daily for the next 10 days. If at any point you feel that your symptoms or not improving, you develop fevers, have nausea and vomiting, difficulty breathing then you should return immediately to the ER for repeat evaluation otherwise continue longer-term follow-up with your urologist and medical care team Forms: PCP List
[2023-09-06 15:48] LABS: ALBUMIN 4.4 g/dL (3.2-5.5); ALBUMIN/GLOBULIN RATIO 1.4 (1.0-2.2); BILIRUBIN,TOTAL 0.6 mg/dL (0.2-1.0); CALCIUM 10.3 mg/dL (8.5-10.3); CREATININE 0.6 mg/dL (0.6-1.3); POTASSIUM 3.1 mmol/L (3.5-4.5); TOTAL PROTEIN 7.5 g/dL (6.4-8.9)
[2023-09-06 16:25] LABS: BILIRUBIN,URINE NEGATIVE (NEGATIVE); GLUCOSE, URINE (UA) NEGATIVE (NEGATIVE); KETONES,URINE (UA) NEGATIVE (NEGATIVE); LEUKOCYTE ESTERASE, URINE MODERATE (NEGATIVE); NITRITE,URINE POSITIVE (NEGATIVE); OCCULT BLOOD,URINE MODERATE (NEGATIVE); PH,URINE 6.5 PH (5.0-7.5); PROTEIN,URINE 30 mg/dL (NEGATIVE); UROBILINOGEN,URINE 0.2 (NORMAL) E.U./dL (NORMAL)
[2023-09-06 16:26] LABS: CLARITY,URINE CLOUDY (CLEAR)
[2023-09-06 16:40] LABS: BACTERIA,URINE Many /HPF (None Seen); EPITHELIAL CELLS,UR FEW Transitional /HPF (<= Few); SQUAMOUS EPITHELIAL CELL,UR FEW Squamous (<= Few); WBC,URINE >25 /HPF (0-3)
[2023-09-06] MEDS: cefTRIAXone 1 GM VIAL IVP STA (16:57)
--- NOTE | 2023-09-06 16:58 | XRAY Report ---
PROCEDURE: Chest 1 View X-Ray INDICATIONS: chest pain TECHNIQUE: One view of the chest was acquired. COMPARISON: 12/21/2020 FINDINGS: Surgical changes and devices: Cervicothoracic spine fixation hardware Lungs and pleura: No pleural effusions or pneumothorax. Lungs are clear. Mediastinum: Mediastinal contours appear normal. Heart is mildly enlarged. Bones and chest wall: No suspicious bony lesions. Overlying soft tissues appear unremarkable. IMPRESSION: No acute cardiopulmonary process. Reviewed by: Claudine Miller MD, PhD on 09/06/2023 4:57 PM PST Approved by: Claudine Miller MD, PhD on 09/06/2023 4:57 PM PST Station ID: [id number]
[2023-09-06] MEDS: POTASSIUM BICARB 25 MEQ TABLET PO STA (17:28)
[2023-09-06 17:31] LABS: B. PARAPERTUSSIS- RESP PCR PAN NOT DETECTED; B. PERTUSSIS- RESP PCR PANEL NOT DETECTED; C. PNEUMONIAE- RESP PCR PANEL NOT DETECTED; CORONAVIRUS 229E-RESP PCR NOT DETECTED; CORONAVIRUS HKU1-RESP PCR NOT DETECTED; CORONAVIRUS NL63-RESP PCR NOT DETECTED; CORONAVIRUS OC43-RESP PCR NOT DETECTED; HUMAN METAPNEUMOVIRUS NOT DETECTED; INFLUENZA A- RESP PCR PANEL NOT DETECTED; INFLUENZA B - RESP PCR PANEL NOT DETECTED; M. PNEUMONIAE- RESP PCR PANEL NOT DETECTED; PARAINFLUENZA VIRUS 1 NOT DETECTED; PARAINFLUENZA VIRUS 2 NOT DETECTED; PARAINFLUENZA VIRUS 3 NOT DETECTED; PARAINFLUENZA VIRUS 4 NOT DETECTED; RHINOVIRUS/ENTEROVIRUS NOT DETECTED; RSV- RESP PCR PANEL NOT DETECTED; SARS-CoV-2 -RESP PCR PANEL NOT DETECTED
[2023-09-06] MEDS: SODIUM CHLORIDE 0.9% 1,000 ML IV STA (19:23)
[2023-09-06] MEDS: iohexoL-300 100 ML VIAL IVP ONE (20:07)
--- NOTE | 2023-09-06 20:19 | CT Report ---
PROCEDURE: ABDOMEN/PELVIS W INDICATIONS: Abdominal pain, acute, nonlocalized CONTRAST: 100mL Omni 300 TECHNIQUE: After the administration of intravenous contrast, 5 mm thick sections acquired from the diaphragms to the symphysis. 5 mm thick coronal and sagittal reformats were acquired. For radiation dose reducti on, the following was used: automated exposure control, adjustment of mA and/or kV according to marlin ent size. COMPARISON: CT 12/13/2020 FINDINGS: Image quality: Mildly suboptimal due to motion artifact. Lung bases and heart: Calcifications versus prosthesis. Liver: No solid mass. Gallbladder and biliary tree: No radiopaque stones or wall thickening. No biliary dilation. Spleen: No splenomegaly. Pancreas: No pancreatic ductal dilation. Adrenals: No adrenal nodule. Kidneys and ureters: No hydronephrosis. No renal cystic lesion which requires follow up. No solid mas s. Scar at the superior calyx of the right kidney. Bowel and peritoneum: No bowel distension. No pathologic free fluid. Lymph nodes: No central or retroperitoneal adenopathy. Vessels: No infrarenal aortic aneurysm. PELVIS Reproductive organs: Unremarkable. Bladder: Urinary bladder decompressed around a Kaba catheter. Diffuse bladder wall thickening with a submucosal hyperenhancement. Pelvic lymph nodes: No pelvic adenopathy by size criteria. Bones: No aggressive osseous abnormality. Chronic concave compression deformity of the endplate of L1 . Posterior surgical fusion of the thoracic spine, partially visualized. Other: No significant ventral or inguinal hernia. IMPRESSION: Urinary bladder decompressed around a Kaba catheter. Diffuse urinary bladder wall thickening with crowley bmucosal hyperenhancement, which may indicate superimposed infection. Reviewed by: Mayco Kapoor on 09/06/2023 8:18 PM PST Approved by: Mayco Kapoor on 09/06/2023 8:18 PM PST Station ID: [id number]
[2023-09-06 20:56] VITALS: BP 124/80; O2SAT 98
== END 2023-09-06 20:48 | disposition home or self-care (01) ==
LOC: ED 14:55
DX: T83.510A Infection and inflammatory reaction due to cystostomy catheter, initial encounter (principal); N39.0 Urinary tract infection, site not specified; G82.50 Quadriplegia, unspecified; E66.9 Obesity, unspecified; Z79.899 Other long term (current) drug therapy; Z20.822 Contact with and (suspected) exposure to COVID-19
CPT/HCPCS: 36415; 51702; 71045; 74177; 80053; 81001; 83690; 85025; 87040; 87077; 87086; 87181; 87633; 96374; 99284; A9270; Q9967; 81003

== ENCOUNTER 2024-04-06 07:20 | Outpatient (CLI) | payer BC | END 2024-04-06 23:59 | disposition critical access hospital (66) | LOC: EMS 07:20 | DX: T83.021A Displacement of indwelling urethral catheter, initial encounter (principal); R58 Hemorrhage, not elsewhere classified; G82.50 Quadriplegia, unspecified | CPT/HCPCS: A0425; A0429 ==

== ENCOUNTER 2024-04-06 07:29 | Emergency (ER) | payer OTHER, BC ==
[2024-04-06] MEDS: NITROGLYCERIN 2% PASTE TOP STA (08:15)
--- NOTE | 2024-04-06 08:50 | ED Physician Documentation ---
History of Present Illness - Stated complaint Stated Complaint: PULLED CATH OUT - Chief complaint Chief Complaint: General - History obtained from History obtained from: Patient - Additonal information Additional information: The patient is sent to the emergency department via EMS for chief complaint of blood and clots in urine after accidentally pulling Kaba catheter out. The patient is a quadriplegic and is chronically catheterized. He states he was adjusting his sheets this morning when he excellently caught his catheter and pulled it out. The patient had immediate discharge of blood. The nursing staff put the catheter right back in and bloody urine plus some clots came out. Then there was a large clot that seem to be blocking the catheter and it was at that point that EMS was summoned. EMS states that they have had what seems to be good output of bloody urine in the catheter. Patient is also concerned because if his bladder fills up, his autonomic dysreflexia kicks in and his blood pressure gets very high. He has aortic valve stenosis that is being followed by cardiology and he is just concerned that if his blood pressure goes too high, it can cause decompensation of this. No other complaints at this time. PD PAST MEDICAL HISTORY - Past Medical History Cardiovascular: Murmur Respiratory: None Neuro: Other Endocrine/Autoimmune: None GI: None : Chronic bladder infection, Indwelling catheter, Kidney stones HEENT: None Psych: None Musculoskeletal: Quadriplegia, Other Derm: None - Past Surgical History Past Surgical History: Yes General: Appendectomy, Colonoscopy Ortho: Spine surgery Neuro: Other Derm: Debridement, Other - Present Medications Home Medications: Ambulatory Orders Medication Instructions Recorded Confirmed Acetaminophen/Diphenhydramine 500 mg PO HS 07/13/13 04/06/24 [Tylenol Pm Ex-Strength Caplet] Bisacodyl [Laxative] 5 mg PO QPM 07/13/13 04/06/24 Cranberry 2,000 mg PO DAILY 07/13/13 04/06/24 Docusate Sodium [Docu Soft] 250 mg PO BID 07/13/13 04/06/24 Cholecalciferol [Vitamin D3] 1 tab PO DAILY 11/20/14 04/06/24 Lactobacillus Acidophilus 1 cap PO DAILY 11/20/14 04/06/24 [Probiotic] Senna [Senokot] 2 tab PO BID 11/26/18 04/06/24 Trospium Chloride [Trospium 120 mg PO DAILY 12/21/20 04/06/24 Chloride ER] Baclofen [Lioresal] 10 mg PO BID 11/30/22 04/06/24 hydroCHLOROthiazide 25 mg PO BID 11/30/22 04/06/24 [Hydrochlorothiazide] Baclofen [Lioresal] 10 mg PO BID 04/06/24 04/06/24 - Allergies Allergies/Adverse Reactions: Allergies Allergy/AdvReac Type Severity Reaction Status Date / Time No Known Drug Allergies Allergy Verified 04/06/24 08:09 - Social History Does the pt smoke?: No Smoking Status: Never smoker Does the pt drink ETOH?: No Does the pt have substance abuse?: No - Immunizations Immunizations are current?: Yes - POLST Patient has POLST: No PD ED PE NORMAL - Vitals Vital signs reviewed: Yes - General General: Alert and oriented X 3, No acute distress, Well developed/nourished - HEENT HEENT: Atraumatic, EOMI, Moist mucous membranes - Neck Neck: Supple, no meningeal sign - Cardiac Cardiac: RRR, No murmur - Respiratory Respiratory: No respiratory distress, Clear bilaterally - Abdomen Abdomen: Soft, Non tender, Non distended - Male Male : Junior Sales Assistant present, Other (Normal male genitalia. Some dark bloody urine in the catheter and bag which appears to be flowing freely. Minimal clots. Dilute bloody output from around the catheter at the meatus mildly. No external trauma. No swelling or contusion of the penis.) - Derm Derm: Normal color, Warm and dry, No rash - Extremities Extremities: No deformity - Neuro Neuro: Alert and oriented X 3 - Psych Psych: Normal mood, Normal affect Results - Vitals Vitals: Vital Signs - 24 hr 04/06/24 04/06/24 07:39 08:17 Temperature 36.1 C L Heart Rate 74 78 Respiratory 20 17 Rate Blood Pressure 143/107 H 141/74 H O2 Saturation 95 94 Oxygen O2 Source Room air PD Medical Decision Making - ED course Complexity details: reviewed results, re-evaluated patient, considered differential, d/w patient, d/w family ED course: The patient's catheter was flushed easily and only very small amount of clot came out. The entire flush drained into the catheter without difficulty. The patient had elevated blood pressure in the ED but otherwise was feeling okay. He was given a dose of nitroglycerin paste. I did speak with Dr. Rice of urology, who follows this patient, and we discussed whether the patient should have a urethrogram. Dr. Rice stated that in general these patients do not need a urethrogram and replacing the Kaba is adequate treatment. Any other trauma is expected to be fairly mild and will heal on its own. Patient was stable for discharge home. We have discussed the need for follow-up and the usual indications for return. Departure - Departure Disposition: 01 Home, Self Care Clinical Impression: Genitourinary trauma, Autonomic dysreflexia Kaba catheter problem Qualifiers: Encounter type: initial encounter Qualified Code(s): T83.9XXA - Unspecified complication of genitourinary prosthetic device, implant and graft, initial encounter Condition: Stable Instructions: ED Catheter Care Kaba Comments: Your case has been discussed with Dr. Rice, who has stated that there is no role for urethrogram at this time. He says that the expected trauma from this injury is generally fairly mild and that the treatment now is to simply replace the Kaba catheter and let it act as a splint to the urethra, which will heal itself. Your catheter has flushed very well and only tiny clots have come out. You will most likely have some bloody urine for the next several days but that should subside. Please use your Nitropaste as needed. Please schedule follow- up with Dr. Rice as needed, as well.
[2024-04-06 11:49] VITALS: BP 138/70; O2SAT 98
== END 2024-04-06 11:48 | disposition home or self-care (01) ==
LOC: EDUNIT# → ED 07:29
DX: T83.83XA Hemorrhage due to genitourinary prosthetic devices, implants and grafts, initial encounter (principal); S37.898A Other injury of other urinary and pelvic organ, initial encounter; X58.XXXA Exposure to other specified factors, initial encounter; G90.4 Autonomic dysreflexia; G82.50 Quadriplegia, unspecified; I35.0 Nonrheumatic aortic (valve) stenosis; Z87.442 Personal history of urinary calculi
CPT/HCPCS: 99283; 99284

== ENCOUNTER 2024-06-30 11:41 | Emergency (ER) | payer BC ==
[2024-06-30 13:05] LABS: B. PARAPERTUSSIS- RESP PCR PAN NOT DETECTED; B. PERTUSSIS- RESP PCR PANEL NOT DETECTED; C. PNEUMONIAE- RESP PCR PANEL NOT DETECTED; CORONAVIRUS 229E-RESP PCR NOT DETECTED; CORONAVIRUS HKU1-RESP PCR NOT DETECTED; CORONAVIRUS NL63-RESP PCR NOT DETECTED; CORONAVIRUS OC43-RESP PCR NOT DETECTED; HUMAN METAPNEUMOVIRUS NOT DETECTED; INFLUENZA A- RESP PCR PANEL NOT DETECTED; INFLUENZA B - RESP PCR PANEL NOT DETECTED; M. PNEUMONIAE- RESP PCR PANEL NOT DETECTED; PARAINFLUENZA VIRUS 1 NOT DETECTED; PARAINFLUENZA VIRUS 2 NOT DETECTED; PARAINFLUENZA VIRUS 3 NOT DETECTED; PARAINFLUENZA VIRUS 4 NOT DETECTED; RHINOVIRUS/ENTEROVIRUS DETECTED; RSV- RESP PCR PANEL NOT DETECTED; SARS-CoV-2 -RESP PCR PANEL NOT DETECTED
--- NOTE | 2024-06-30 13:12 | ED Physician Documentation ---
PD HPI URI - Stated complaint Stated Complaint: PERSISTENT COUGH - Chief complaint Chief Complaint: Resp - History obtained from History obtained from: Patient - History of Present Illness Timing - onset: How many weeks ago (1) Timing duration: Weeks (1) Timing details: Abrupt onset, Still present Associated symptoms: Chills, Rhinorrhea, Sinus pain, Productive cough, Dyspnea. No: Chest pain Contributing factors: Other (prior spinal cord injury C5/6 complete, so poor abd and diaphragmatic muscle use. Harder to get good clearing cough.). No: Sick contact, Immunocompromised Worsened by: Activity PD PAST MEDICAL HISTORY - Past Medical History Past Medical History: Yes Cardiovascular: Murmur Respiratory: None Neuro: Other Endocrine/Autoimmune: None GI: None : Chronic bladder infection, Indwelling catheter, Kidney stones HEENT: None Psych: None Musculoskeletal: Quadriplegia, Other Derm: None - Past Surgical History Past Surgical History: Yes General: Appendectomy, Colonoscopy Ortho: Spine surgery Neuro: Other Derm: Debridement, Other - Present Medications Home Medications: Ambulatory Orders Medication Instructions Recorded Confirmed Acetaminophen/Diphenhydramine 500 mg PO HS 07/13/13 06/30/24 [Tylenol Pm Ex-Strength Caplet] Bisacodyl [Laxative] 5 mg PO QPM 07/13/13 06/30/24 Cranberry 2,000 mg PO DAILY 07/13/13 06/30/24 Docusate Sodium [Docu Soft] 250 mg PO BID 07/13/13 06/30/24 Cholecalciferol [Vitamin D3] 1 tab PO DAILY 11/20/14 06/30/24 Lactobacillus Acidophilus 1 cap PO DAILY 11/20/14 06/30/24 [Probiotic] Senna [Senokot] 2 tab PO BID 11/26/18 06/30/24 Trospium Chloride [Trospium 120 mg PO DAILY 12/21/20 06/30/24 Chloride ER] hydroCHLOROthiazide 25 mg PO BID 11/30/22 06/30/24 [Hydrochlorothiazide] Baclofen [Lioresal] 10 mg PO BID 04/06/24 06/30/24 Albuterol Sulf [Ventolin Hfa 2 - 3 puffs INH QID #1 each 06/30/24 Inhaler] Amox/Clav 875/125 [Augmentin] 1 each PO Q12H #10 tablet 06/30/24 dexAMETHasone [Decadron] 4 mg PO DAILY #5 tablet 06/30/24 - Allergies Allergies/Adverse Reactions: Allergies Allergy/AdvReac Type Severity Reaction Status Date / Time No Known Drug Allergies Allergy Verified 06/30/24 11:53 - Social History Does the pt smoke?: No Smoking Status: Never smoker Does the pt drink ETOH?: No Does the pt have substance abuse?: No - Immunizations Immunizations are current?: Yes - POLST Patient has POLST: No PD ED PE NORMAL - Vitals Vital signs reviewed: Yes - General General: Alert and oriented X 3, No acute distress, Well developed/nourished - HEENT HEENT: Ears normal, Pharynx benign - Neck Neck: Supple, no meningeal sign, No adenopathy - Cardiac Cardiac: RRR, No murmur - Respiratory Respiratory: No respiratory distress. No: Clear bilaterally (no coarse sounds. Mild mid to end exp wheezing. no accessory muscle use. ) Results - Vitals Vitals: Oxygen O2 Source Room air - Labs Labs: Laboratory Tests 06/30/24 11:57 Nasal Adenovirus (PCR) NOT DETECTED Nasal B. parapertussis DNA (PCR) NOT DETECTED Nasal Coronavir 229E PCR NOT DETECTED Nasal Coronavir HKU1 PCR NOT DETECTED Nasal Coronavir NL63 PCR NOT DETECTED Nasal Coronavir OC43 PCR NOT DETECTED Nasal Enterovir/Rhinovir PCR DETECTED A Nasal Influenza B PCR NOT DETECTED Nasal Influenza A PCR NOT DETECTED Nasal Parainfluen 1 PCR NOT DETECTED Nasal Parainfluen 2 PCR NOT DETECTED Nasal Parainfluen 3 PCR NOT DETECTED Nasal Parainfluen 4 PCR NOT DETECTED Nasal RSV (PCR) NOT DETECTED Nasal B.pertussis DNA PCR NOT DETECTED Nasal C.pneumoniae (PCR) NOT DETECTED Jorge Luis Human Metapneumo PCR NOT DETECTED Nasal M.pneumoniae (PCR) NOT DETECTED Nasal SARS-CoV-2 (PCR) NOT DETECTED PD Medical Decision Making - ED course Complexity details: reviewed results (CXR clear without pneumonia. Viral panel showing rhinovirus, concordant with his symptoms. ), re-evaluated patient (he feels improved breathing after MDI and shown use of pickle. ), considered differential (cough and URI symptoms for a week, persisting and increasing. SPutum production and chest tightness. Given cord injury, he would have more difficultly clearing sputum. I feel adding Albuterol MDI for bronchial relaxation and acappela to help clear sputum. Abx for potential secondary infection.), d/w patient Departure - Departure Disposition: 01 Home, Self Care Clinical Impression: Acute bronchitis due to Rhinovirus, Spinal cord injury at C5-C7 level with complete spinal cord lesion, Dyspnea Condition: Stable Record reviewed to determine appropriate education?: Yes Follow-Up: Mackenzie Baron PA-C [Primary Care Provider] - Prescriptions: Amox/Clav 875/125 [Augmentin] 1 each PO Q12H #10 tablet dexAMETHasone [Decadron] 4 mg PO DAILY #5 tablet Albuterol Sulf [Ventolin Hfa Inhaler] 2 - 3 puffs INH QID #1 each Comments: Your chest x-ray does not show any signs of pneumonia. Your respiratory viral viral panel was positive for rhinovirus which is a upper respiratory infection that commonly causes a bronchitis type symptoms and occasionally can cause pneumonia as well. Given the persistence of your cough and your decreased ability for strong cough etc. due to your prior injuries, there would be concern for secondary development of bacterial infection and also proper clearing of the sputum. As such I think would be reasonable to add an albuterol inhaler to help open the airways and promote better breathing and sputum clearance and also the Acapella flutter valve device 3-4 times daily to help break up the bronchial mucus. Additionally we can add an antibiotic for concern of bacterial infection as well and steroid to help reduce bronchial inflammation. Recheck if not improving well over the next several days to week. There may be some level of persistent cough or even if 2 or 3 weeks more. I sent your prescriptions to your preferred pharmacy. Forms: PCP List Discharge Date/Time: 06/30/24 14:18
--- NOTE | 2024-06-30 13:13 | XRAY Report ---
PROCEDURE: Chest 2V INDICATIONS: cough/congestion TECHNIQUE: 2 views of the chest were acquired. COMPARISON: None. FINDINGS: Surgical changes and devices: None. Lungs and pleura: No pleural effusions or pneumothorax. Lungs are clear. Mediastinum: Mediastinal contours appear normal. Heart size is normal. Bones and chest wall: No suspicious bony lesions. Overlying soft tissues appear unremarkable. IMPRESSION: No acute cardiopulmonary process. Reviewed by: Tika Wynn MD on 06/30/2024 12:12 PM [facility]IE Approved by: Tika Wynn MD on 06/30/2024 12:12 PM ROSIE Station ID: [id number]
[2024-06-30] MEDS: dexAMETHasone 4 MG TABLET PO STA (13:38)
[2024-06-30] MEDS: AMOX/CLAV 875 MG/125 MG TABLET PO STA (13:38)
[2024-06-30] MEDS: ALBUTEROL 1 PUFF INH STA (13:50)
[2024-06-30 14:19] VITALS: BP 98/63; O2SAT 94
== END 2024-06-30 14:18 | disposition home or self-care (01) ==
LOC: ED 11:41
DX: J20.6 Acute bronchitis due to rhinovirus (principal); G82.50 Quadriplegia, unspecified; Z87.442 Personal history of urinary calculi
CPT/HCPCS: 71046; 87633; 94640; 94664; 99283; 99284; A9270; J8540